=== PATIENT | female | born 2000 | race Two or more races ===

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

== ENCOUNTER → 2021-01-16 | Outpatient (CLI) | payer OTHER ==
[~2021-01-16] MED LIST: D-101000; ERGO500029; MONT10TA10; SERT50TA29; ZOLO50TA
--- NOTE | 2021-01-16 09:58 | REP ---
INDICATION: PAIN COMPARISON: None. TECHNIQUE: Four views right ankle. FINDINGS: There is no evidence of acute fracture, dislocation, or intrinsic bone disease.The ankle mortise is anatomic. IMPRESSION: Negative right ankle series. <Electronically signed by David Mittal > 01/16/21 0960
== END ==
LOC: M WUC 09:27
PROVIDERS: ATTEND Physician Assistant Medical
DX: M25.571 Pain in right ankle and joints of right foot (principal)

== ENCOUNTER → 2021-01-26 | Outpatient (REF) | payer OTHER ==
[~2021-01-26] MED LIST changes: +FLON1SPR NARES; +IBUP-1022 PO; +PROAAER10 INH; +PSEU120T19 PO; +TESS100C PO
== END ==
LOC: M WUC 19:43
PROVIDERS: ATTEND Nurse Practitioner Family
DX: J04.0 Acute laryngitis (principal)

== ENCOUNTER 2021-01-29 18:44 | Emergency (ER) | payer OTHER ==
[~2021-01-29] VITALS: Ht 152.4 cm; Wt 99.7 kg
[2021-01-29 18:44] VITALS: BP 144/80
[~2021-01-29 18:44] MED LIST changes: -FLON1SPR NARES; -IBUP-1022 PO; -PROAAER10 INH; -PSEU120T19 PO; -TESS100C PO
--- OUTSIDE RECORDS SUMMARY | 2021-01-29 18:48 | CCD | Continuity of Care Document ---
Author Author Alicia TOLLIVER LAVATORY ATTENDANT Organization Unknown Address [address] [place] [address] Phone [phone] Care Team Providers Care Abrasive Water Jet Cutter Operator Name Role Phone [facility] AUTM [phone] Problems Active Problems Provider Date Acute asthma ROSETTA Manzano Onset: 07/14/2010 Social History Type Date Description Comments Sex Unknown Tobacco Use Start: Unknown The patient has never vaped Tobacco Use Start: Unknown Patient has never smoked Allergies and adverse reactions Active Allergies Criticality Reaction | Severity Comments Date Peanut-containing Products Unable to assess criticality 08/14/2009 Inactive Allergies NKDA Unable to assess criticality 01/04/2008 Medications Active Medications SIG Qnty Indications Ordering Provide r Date Singulair 10mg Tablets 1 po q d 60tabs Unknown Advair HFA 45-21mcg/Act Aerosol 2 puffs twice a day Unknown Benadryl Allergy Childrens 12.5mg/5ML Liquid as needed Unknown Mucinex Unknown Vicks Dayquil Cold & Flu Unknown Albuterol Fha Unknown Vitamin D Unknown Immunizations Description No Information Available Vital Signs Date Vital Result Comment 01/26/2021 2:53pm BP Systolic 120 mmHg BP Diastolic 81 mmHg Heart Rate 80 /min Respiratory Rate 16 /min O2 % BldC Oximetry 100 % Body Temperature 98.7 F Weight 216.00 lb Height 50 inches 4'2" BMI (Body Mass Index) 60.7 kg/m2 Pain Level 3 05/18/2011 12:05pm BP Systolic 100 mmHg BP Diastolic 60 mmHg Heart Rate 96 /min Respiratory Rate 18 /min O2 % BldC Oximetry 98 % Body Temperature 98.7 F Weight 102.00 lb Height 55 inches 4'7" BMI (Body Mass Index) 23.7 kg/m2 Pain Level 8 Results Test Acquired Date Facility Test Result H/L Range Note Laboratory test finding 01/26/2021 [facility] [address] [place] [address] [phone] Throat Culture FULL REPORT IN L <SEE NOTE> Normal 1 1 FULL REPORT IN LAB NOTES (eC W and Med[facility]). NORMAL DAVINA PRESENT Procedures Date Code Description Status 01/26/2021 [address] Office/Outpatient New Low MDM 30 -44 Minutes Completed Medical Devices Description No Information Available Encounters Type Date Location Provider Dx Diagnosis Office Visit 01/26/2021 11:50a Main Office Carla Tolliver NP J04. 0 Acute laryngitis Z20.828 Contact w and exposure to ot h viral communicable diseases Assessments Date Code Description Provider 01/26/2021 J04.0 Acute laryngitis Carla munguia NP 01/26/2021 Z20.828 Contact with and (root spected) exposure to other viral communicable diseases Carla Tolliver NP Plan of Treatment No Information Available Functional Status Description No Information Available Mental Status Description No Information Available Referrals Description No Information Available
--- OUTSIDE RECORDS SUMMARY | 2021-01-29 18:48 | CCD ---
Author Author [facility] Organization [facility] Address Unknown Phone Unavailable Care Team Providers Care Landscape Foreman Name Role Phone Paula Serrano Unavailable PROBLEMS Type Condition ICD9-CM Code [id number] Code Onset Dates Condition S tatus W/U Status Risk SNOMED Code Notes Problem BMI 37.0-37.9, adult Z68.37 Active confirmed 609529000 Problem Peanut allergy Z91.010 Active confirmed 9193 5009 Problem Non-seasonal allergic rhinitis, unspecified trigger J30.89 Active confirmed 56416848 Problem Anxiety with depression F41.8 Active confirmed 285060425 Problem Pre-diabetes R73.03 Active confirmed 4662478 02 Problem Mixed stress and urge urinary incontinence N39.46 Active confirmed 423367103 Problem Obesity (BMI 30-39.9) E66.9 Active confirmed 539776429 Problem Morbid (severe) obesity due to excess calories E66 .01 Active confirmed 005814357 Problem Mild persistent asthma without complication J45.30 Active confirmed 412276493 Problem Vitamin D deficiency E55.9 Active confirmed 39252926 Problem Mixed hyperlipidemia E78.2 Active confirmed 613868619 Problem BMI 38.0-38.9,adult Z68.38 Active confirmed 661633740 Problem Body mass index (BMI) of 40.1 to 44.9 in adult Z68 .41 Active confirmed 698089777 ALLERGIES Allergen (clinical drug ingredient) Drug/Non Drug Allergy do cumented on EMR Reaction Allergy Type Onset Date Status Peanut allergy Anaphylaxis Non Drug Allergy Act yasmine Mold Hives Non Drug Allergy Active ENCOUNTERS from 2001 to 2020-11-17 Encounter Location Date Provider Diagnosis [address] [phone] [place] [address] Oct, Paula Serrano Non-seasonal allergic rhinit is, unspecified trigger J30.89 IMMUNIZATIONS Vaccine Route Administration Date Status COVID-19 dose #2 given elsewhere Unspecified Unknown Oct 25, 2020 Administered COVID-19 dose #1 given elsewhere Unspecified Unknown Oct 25, 2020 Administered Influenza Pharmacy Given Unknown Mar 23, 2019 Adminis tered Influenza 18 yrs & older [facility] Unknown Mar 28, 2020 Administered SOCIAL HISTORY Tobacco Use: Social History Observation Description Date Details (start date - stop date) Never Smoker Sex Assigned At : Social History Observation Description Sex Assigned At Unknown Education: Question Answer Notes Level 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 No LMP: 04/14/2019 Have you ever had an STD? No Drug and Alcohol Question Answer Notes Total Score: 0 Interpretation: No problems reported Alcohol Screening: Question Answer Notes Did you have a drink containing alcohol in the past year? No Points 0 Interpretation Negative BMI Care Goal Follow-Up Question Answer Notes Above Normal BMI Follow-Up Giving encouragement to exercise Tobacco Use: Question Answer Notes Are you a: never smoker REASON FOR REFERRAL No Information VITAL SIGNS No information MEDICATIONS Medication SIG (Take, Route, Frequency, Duration) Notes Start Da te End Date Status Albuterol Sulfate (2.5 MG/3ML) 0.083% 3 ml as needed Inhalation lauren ry 8 hrs Active Advair HFA 115-21 MCG/ACT 2 puffs Inhalation Twice a day Active Benadryl Allergy 25 mg 1 tablet at bedtime as neede d Orally Once a day as needed with EPI pen Active EpiPen 2-Aayush 0.3 MG/0.3ML as directed Injection Active ProAir HFA 108 (90 Base) mcg/act 2 puffs as needed Inhalation qid prn Active Montelukast Sodium 10 MG 1 tablet Orally Once a day Active Flonase Allergy Relief 50 MCG/ACT 1 spray in each nostril Nasall y Once a day Active Benzamycin 5-3 % 1 application to face Externally Twice a day for 9 0 day(s) Active Drisdol 1.25 MG (12030 UT) 1 capsule Orally once every week with a meal for 90 day(s) Active Vitamin D-3 25 MCG (1000 UT) 1 capsule Orally Once a day 0 5 Mar, 2020 Active Sertraline HCl 25 MG TAKE ONE TABLET BY MOUTH EVERY DAY Oral Active Cetirizine HCl 10 MG 1 tablet Orally Once a day Active PROCEDURES from 2001 to 2020-11-17 Procedure Date Ordered Result Body Site Allergy: Immunotherapy SQ Injection, Multiple 2020-11-17 N/ A RESULTS No Results REASON FOR VISIT allergy shot MEDICAL (GENERAL) HISTORY Type Description Date Medical History asthma Medical History allergic rhinitis Medical History obesity Medical History anxiety/depression Medical History hyperlipidemia Medical History pre-diabetes Medical History vitamin D deficiency Surgical History No Surgical history information Goals Section No Information Health Concerns No Information MEDICAL EQUIPMENT No Information MENTAL STATUS No Information FUNCTIONAL STATUS No Information ASSESSMENTS Encounter Date Diagnosis Assessment Notes Treatment Notes Treatm ent Clinical Notes Oct, Non-seasonal allergic rhinit is, unspecified trigger (ICD-10 - J30.89) PLAN OF TREATMENT Medication Medication Name Sig Start Date Stop Date Drisdol 1.25 MG (78289 UT) 1 capsule Orally once every week with a meal for 90 day(s) Vitamin D-3 25 MCG (1000 UT) 1 capsule Orally Once a day Mar, Next Appt Details Provider Name:Paula Serrano, 2020-12-01 08:0 0:00 AM, [address] [place], [place] [id number], [place], [address], Provider Name:Paulaannie Serrano, 2021-05-09 08:0 0:00 AM, [address] [place], [place] [id number], [place], [address], Insurance Providers Payer Name Payer Address Payer Phone Insured Name Patient Relati onship to Insured Coverage Start Date Coverage End Date AETNA [facility] [address] [facility] [id number] KRISTIE OCONNOR self
--- OUTSIDE RECORDS SUMMARY | 2021-01-29 18:48 | CCD ---
Author Author [facility] Organization [facility] Address Unknown Phone Unavailable Care Team Providers Care State Pilot Name Role Phone Paula Serrano Unavailable PROBLEMS Type Condition ICD9-CM Code FXY00-LF Code Onset Dates Condition S tatus W/U Status Risk SNOMED Code Notes Problem BMI 37.0-37.9, adult Z68.37 Active confirmed 068117747 Problem Peanut allergy Z91.010 Active confirmed 9193 5009 Problem Non-seasonal allergic rhinitis, unspecified trigger J30.89 Active confirmed 24087283 Problem Anxiety with depression F41.8 Active confirmed 133099160 Problem Pre-diabetes R73.03 Active confirmed 0363587 02 Problem Mixed stress and urge urinary incontinence N39.46 Active confirmed 855467600 Problem Obesity (BMI 30-39.9) E66.9 Active confirmed 033175266 Problem Morbid (severe) obesity due to excess calories E66 .01 Active confirmed 451236761 Problem Mild persistent asthma without complication J45.30 Active confirmed 635837783 Problem Vitamin D deficiency E55.9 Active confirmed 70984478 Problem Mixed hyperlipidemia E78.2 Active confirmed 706992383 Problem BMI 38.0-38.9,adult Z68.38 Active confirmed 082279674 Problem Body mass index (BMI) of 40.1 to 44.9 in adult Z68 .41 Active confirmed 583579903 ALLERGIES Allergen (clinical drug ingredient) Drug/Non Drug Allergy do cumented on EMR Reaction Allergy Type Onset Date Status Peanut allergy Anaphylaxis Non Drug Allergy Act yasmine Mold Hives Non Drug Allergy Active ENCOUNTERS from 2001 to 2020-11-08 Encounter Location Date Provider Diagnosis [address] [phone] [place] [address] Oct, Paula Serrano Pre-diabetes R73.03 ; Mixed hyperlipidemia E78.2 ; Vitamin D deficiency E55.9 ; Morbid (severe) obesity due to excess calories E66.01 ; Body mass index (BMI) of 40.1 to 44.9 in adult Z68.41 and Non-seasonal allergic rhinitis, unspecified trigger J30.89 IMMUNIZATIONS Vaccine Route Administration [...] Answer Notes Level of Education: Senior in High [employer] Audit Question Answer Notes Total Score: 0 Interpretation: Alcohol Education Language: Question Answer Notes Languages spoken: Macedonian Quaker: Question Answer Notes Quaker 21 Gnosticist Sexual Hx: Question Answer Notes Had sex [...] REASON FOR REFERRAL No Information VITAL SIGNS Weight 215 lbs Oct, Height 5'0" in Oct, BMI 41.98 kg/m2 Oct, Heart Rate 79 /min Oct, Respiratory Rate 18 /min Oct, Temperature 97.3 degrees Fahrenheit Oct, Oximetry 100 Oct, Blood pressure systolic 112 mm Hg Oct, Blood pressure diastolic 70 mm Hg Oct, MEDICATIONS Medication SIG (Take, Route, Frequency, Duration) [...] 9 0 day(s) Active Drisdol 1.25 MG (94308 UT) 1 capsule Orally once every week with a meal for 90 day(s) Active Vitamin D-3 25 MCG (1000 UT) 1 capsule Orally Once a day 0 5 Mar, 2020 Active Sertraline HCl 25 MG TAKE ONE TABLET BY MOUTH EVERY DAY Oral Active Cetirizine HCl 10 MG 1 tablet Orally Once a day Active PROCEDURES No Information RESULTS No Results REASON FOR VISIT f/up labs - print outside labs done MEDICAL (GENERAL) HISTORY Type Description Date Medical [...] Treatment Notes Treatm ent Clinical Notes Oct, Pre-diabetes (ICD-10 - R73.03) repeat labs in 6 months, diet & exercise reviewed with patient Oct, Mixed hyperlipidemia (ICD-10 - E78.2) low fat diet reviewed - avoid fatty/fried foods. Repeat labs in 6 months Oct, Vitamin D deficiency (ICD-10 - E55.9) decreased from previous - will increase drisdol and re-check with next labs Oct, Morbid (severe) obesity due to excess calories ( ICD-10 - E66.01) Oct, Body mass index (BMI) of 40.1 to 44.9 in adult ( ICD-10 - Z68.41) diet & exercise reviewed with patient Oct, Non-seasonal allergic rhinit is, unspecified trigger (ICD-10 - J30.89) continue allergy shots and f/up per Product Strategy Director PLAN OF TREATMENT Medication Medication Name Sig Start Date Stop Date Drisdol 1.25 MG (91196 UT) 1 capsule Orally once every week with a meal for 90 day(s) Vitamin D-3 25 MCG (1000 UT) 1 capsule Orally Once a day Mar, Treatment Notes Assessment Notes Clinical Notes Pre-diabetes repeat labs in 6 months, diet & exercise reviewed with patient Mixed hyperlipidemia low fat diet reviewed - avoi d fatty/fried foods. Repeat labs in 6 months Vitamin D deficiency decreased from previous - wi ll increase drisdol and re- check with next labs Body mass index (BMI) of 40.1 to 44.9 in adult diet & exercise reviewed with patient Non-seasonal allergic rhinitis, unspecified trigger co ntinue allergy shots and f/up per Product Strategy Director Future Test Test Name Order Date Comprehensive Metabolic Profile (CMP) 20210424 MICROALBUMIN RANDOM [id number] HEMOGLOBIN A1c 20210424 LIPID PANEL (CARDIAC RISK) 20210424 VITAMIN D 25-HYDROXY 20210424 Next Appt Details 6 Months w/ me and [place] for allergy shots Reason: Provider Name:Paula Serrano, 2020-11-17 11:0 0:00 AM, [address] [place] [address] , [place], [address], Provider Name:Paula Serrano, 2021-05-09 08:0 0:00 AM, [address] [place] [address] , [place], [address], Insurance Providers Payer Name Payer Address Payer Phone Insured Name Patient Relati onship to Insured Coverage Start Date Coverage End Date AETNA [facility] [place] [address] [facility] [id number] KRISTIE OCONNOR self
--- OUTSIDE RECORDS SUMMARY | 2021-01-29 18:48 | CCD ---
Author Author [facility] Organization [facility] Address Unknown Phone Unavailable Care Team Providers Care Openstack Developer Name Role Phone Paula Serrano Unavailable PROBLEMS Type Condition ICD9-CM Code [id number] Code Onset Dates Condition S tatus W/U Status Risk SNOMED Code Notes Problem BMI 37.0-37.9, adult Z68.37 Active confirmed 108824962 Problem Peanut allergy Z91.010 Active confirmed 9193 5009 Problem Non-seasonal allergic rhinitis, unspecified trigger J30.89 Active confirmed 79937367 Problem Anxiety with depression F41.8 Active confirmed 964416974 Problem Pre-diabetes R73.03 Active confirmed 4373500 02 Problem Mixed stress and urge urinary incontinence N39.46 Active confirmed 368410920 Problem Obesity (BMI 30-39.9) E66.9 Active confirmed 673781902 Problem Morbid (severe) obesity due to excess calories E66 .01 Active confirmed 956031919 Problem Mild persistent asthma without complication J45.30 Active confirmed 237024252 Problem Vitamin D deficiency E55.9 Active confirmed 56390909 Problem Mixed hyperlipidemia E78.2 Active confirmed 063495830 Problem BMI 38.0-38.9,adult Z68.38 Active confirmed 017363946 Problem Body mass index (BMI) of 40.1 to 44.9 in adult Z68 .41 Active confirmed 203568264 ALLERGIES Allergen (clinical drug ingredient) Drug/Non Drug Allergy do cumented on EMR Reaction Allergy Type Onset Date Status Mold Hives Drug Allergy Active arachis oil Peanut-containing Drug Products Anaphylaxis Drug Allergy Active ENCOUNTERS from 2001 to 2021-01-09 Encounter Location Date Provider Diagnosis [address] [phone] [place] [address] 18 Dec, 2020 Paula Serrano IMMUNIZATIONS Vaccine Route Administration Date Status COVID-19 [...] Notes Level of Education: Senior in High [employer] Audit Question Answer Notes Total Score: 0 Interpretation: Alcohol Education Language: Question Answer Notes Languages spoken: French Taoism: Question Answer Notes Taoism 21 Uatsdin Sexual Hx: Question Answer Notes Had sex [...] 9 0 day(s) Active Drisdol 1.25 MG (85925 UT) 1 capsule Orally once every week [...] Information RESULTS No Results REASON FOR VISIT IT record? MEDICAL (GENERAL) HISTORY Type Description Date Medical History asthma Medical History allergic rhinitis Medical History obesity Medical History anxiety/depression Medical History hyperlipidemia Medical History pre-diabetes Medical History vitamin D deficiency Surgical History No Surgical history information Goals Section No Information Health Concerns No Information MEDICAL EQUIPMENT No Information MENTAL STATUS No Information FUNCTIONAL STATUS No Information ASSESSMENTS No Information PLAN OF TREATMENT Medication Medication Name Sig Start Date Stop Date Drisdol 1.25 MG (16897 UT) 1 capsule Orally once every week with a meal for 90 day(s) Vitamin D-3 25 MCG (1000 UT) 1 capsule Orally Once a day Mar, Next Appt Details Provider Name:Paula Serrano, 2021-01-12 02:0 0:00 PM, [address] [place] [address] , [place], [address], Provider Name:Vanessa Killian, 09:00:00 AM, [address] [place] [address] , [place], [address], Insurance Providers Payer Name Payer Address Payer Phone Insured Name Patient Relati onship to Insured Coverage Start Date Coverage End Date AETNA [facility] [address] [facility] [id number] KRISTIE OCONNOR self
--- OUTSIDE RECORDS SUMMARY | 2021-01-29 18:48 | CCD ---
Author Author [facility] Organization [facility] Address Unknown Phone Unavailable Care Team Providers Care Manager Operational Name Role Phone Paula Serrano Unavailable PROBLEMS Type Condition ICD9-CM Code [id number] Code Onset Dates Condition S tatus W/U Status Risk SNOMED Code Notes Problem BMI 37.0-37.9, adult Z68.37 Active confirmed 511844540 Problem Peanut allergy Z91.010 Active confirmed 9193 5009 Problem Non-seasonal allergic rhinitis, unspecified trigger J30.89 Active confirmed 79406886 Problem Anxiety with depression F41.8 Active confirmed 597302765 Problem Pre-diabetes R73.03 Active confirmed 0619313 02 Problem Mixed stress and urge urinary incontinence N39.46 Active confirmed 665720254 Problem Obesity (BMI 30-39.9) E66.9 Active confirmed 383643193 Problem Morbid (severe) obesity due to excess calories E66 .01 Active confirmed 331108727 Problem Mild persistent asthma without complication J45.30 Active confirmed 877635474 Problem Vitamin D deficiency E55.9 Active confirmed 42954495 Problem Mixed hyperlipidemia E78.2 Active confirmed 227193091 Problem BMI 38.0-38.9,adult Z68.38 Active confirmed 749502911 Problem Body mass index (BMI) of 40.1 to 44.9 in adult Z68 .41 Active confirmed 034665471 ALLERGIES Allergen (clinical drug ingredient) Drug/Non Drug Allergy do cumented on EMR Reaction Allergy Type Onset Date Status Peanut allergy Anaphylaxis Non Drug Allergy Act yasmine Mold Hives Non Drug Allergy Active ENCOUNTERS from 2001 to 2020-11-03 Encounter Location Date Provider Diagnosis [address] [phone] [place] [address] 13 Oct, 2020 Paula Serrano Non-seasonal allergic rhinit is, unspecified [...] Answer Notes Level of Education: Senior in [employer] Audit Question Answer Notes Total Score: 0 Interpretation: Alcohol Education Language: Question Answer Notes Languages spoken: Romansh Anglican: Question Answer Notes Anglican 21 Mandaeism Sexual Hx: Question Answer Notes Had sex [...] 9 0 day(s) Active Drisdol 1.25 MG (91056 UT) 1 capsule Orally once every week with a meal for 90 day(s) Active Vitamin D-3 25 MCG (1000 UT) 1 capsule Orally Once a day 0 5 Mar, 2020 Active Sertraline HCl 25 MG TAKE ONE TABLET BY MOUTH EVERY DAY Oral Active Cetirizine HCl 10 MG 1 tablet Orally Once a day Active PROCEDURES from 2001 to 2020-11-03 Procedure Date Ordered Result Body Site Allergy: Immunotherapy SQ Injection, Multiple 2020-11-03 N/ A RESULTS No Results REASON FOR [...] Start Date Stop Date Drisdol 1.25 MG (45922 UT) 1 capsule Orally once every week with a meal for 90 day(s) Vitamin D-3 25 MCG (1000 UT) 1 capsule Orally Once a day Mar, Next Appt Details Provider Name:Paula Serrano, 2020-11-17 11:0 0:00 AM, [address] [place], [place] [id number], [place], [address], Provider Name:Paulaannie Serrano, 2021-05-09 08:0 0:00 AM, [address] [place], [place] [id number], [place], [address], Insurance Providers Payer Name Payer Address Payer Phone Insured Name Patient Relati onship to Insured Coverage Start Date Coverage End Date AETNA [facility] [address] [facility] [id number] KRISTIE OCONNOR self
--- OUTSIDE RECORDS SUMMARY | 2021-01-29 18:48 | CCD ---
Author Author [facility] Organization [facility] Address Unknown Phone Unavailable Care Team Providers Care Ditch Worker Name Role Phone Paula Serrano Unavailable PROBLEMS Type Condition ICD9-CM Code [id number] Code Onset Dates Condition S tatus W/U Status Risk SNOMED Code Notes Problem BMI 37.0-37.9, adult Z68.37 Active confirmed 141995337 Problem Peanut allergy Z91.010 Active confirmed 9193 5009 Problem Non-seasonal allergic rhinitis, unspecified trigger J30.89 Active confirmed 72120754 Problem Anxiety with depression F41.8 Active confirmed 410504776 Problem Pre-diabetes R73.03 Active confirmed 2281887 02 Problem Mixed stress and urge urinary incontinence N39.46 Active confirmed 507877607 Problem Obesity (BMI 30-39.9) E66.9 Active confirmed 152050461 Problem Morbid (severe) obesity due to excess calories E66 .01 Active confirmed 045095879 Problem Mild persistent asthma without complication J45.30 Active confirmed 144279519 Problem Vitamin D deficiency E55.9 Active confirmed 67861214 Problem Mixed hyperlipidemia E78.2 Active confirmed 143108117 Problem BMI 38.0-38.9,adult Z68.38 Active confirmed 952587463 Problem Body mass index (BMI) of 40.1 to 44.9 in adult Z68 .41 Active confirmed 462510177 ALLERGIES Allergen (clinical drug ingredient) Drug/Non Drug Allergy do cumented on EMR Reaction Allergy Type Onset Date Status Peanut allergy Anaphylaxis Non Drug Allergy Act yasmine Mold Hives Non Drug Allergy Active ENCOUNTERS from 2001 to 2020-12-29 Encounter Location Date Provider Diagnosis [id number] [place] [address] 08 Dec, 2020 Paula Serrano Non-seasonal allergic rhinit is, [...] Answer Notes Level of Education: Senior in [employer] Audit Question Answer Notes Total Score: 0 Interpretation: Alcohol Education Language: Question Answer Notes Languages spoken: Albanian Denominational: Question Answer Notes Denominational 21 Sikh Sexual Hx: Question Answer Notes Had sex [...] 9 0 day(s) Active Drisdol 1.25 MG (17431 UT) 1 capsule Orally once every week with a meal for 90 day(s) Active Vitamin D-3 25 MCG (1000 UT) 1 capsule Orally Once a day 0 5 Mar, 2020 Active Sertraline HCl 25 MG TAKE ONE TABLET BY MOUTH EVERY DAY Oral Active Cetirizine HCl 10 MG 1 tablet Orally Once a day Active PROCEDURES from 2001 to 2020-12-29 Procedure Date Ordered Result Body Site Allergy: Immunotherapy SQ Injection, Multiple 2020-12-29 N/ A RESULTS No Results REASON FOR VISIT ALLERGY SHOT MEDICAL (GENERAL) HISTORY Type Description Date Medical [...] Notes Treatment Notes Treatm ent Clinical Notes Dec, Non-seasonal allergic rhinit is, unspecified trigger (ICD-10 - J30.89) PLAN OF TREATMENT Medication Medication Name Sig Start Date Stop Date Drisdol 1.25 MG (27979 UT) 1 capsule Orally once every week with a meal for 90 day(s) Vitamin D-3 25 MCG (1000 UT) 1 capsule Orally Once a day Mar, Next Appt Details Provider Name:Paula Serrano, 2021-01-12 02:0 0:00 PM, [address] [place], [place] [id number], [place], [address], Provider Name:Vanessa Killian, 09:00:00 AM, [address] [place], [place] [id number], [place], [address], Insurance Providers Payer Name Payer Address Payer Phone Insured Name Patient Relati onship to Insured Coverage Start Date Coverage End Date [facility] [address] [facility] [id number] KRISTIE OCONNOR self
--- OUTSIDE RECORDS SUMMARY | 2021-01-29 18:48 | CCD ---
Author Author [facility] Organization [facility] Address Unknown Phone Unavailable Care Team Providers Care National Park Tour Guide Name Role Phone Paula Serrano Unavailable PROBLEMS Type Condition ICD9-CM Code [id number] Code Onset Dates Condition S tatus W/U Status Risk SNOMED Code Notes Problem BMI 37.0-37.9, adult Z68.37 Active confirmed 871600986 Problem Peanut allergy Z91.010 Active confirmed 9193 5009 Problem Non-seasonal allergic rhinitis, unspecified trigger J30.89 Active confirmed 84586115 Problem Anxiety with depression F41.8 Active confirmed 795542729 Problem Pre-diabetes R73.03 Active confirmed 3765096 02 Problem Mixed stress and urge urinary incontinence N39.46 Active confirmed 324595198 Problem Obesity (BMI 30-39.9) E66.9 Active confirmed 103281650 Problem Morbid (severe) obesity due to excess calories E66 .01 Active confirmed 551279532 Problem Mild persistent asthma without complication J45.30 Active confirmed 417805901 Problem Vitamin D deficiency E55.9 Active confirmed 11823988 Problem Mixed hyperlipidemia E78.2 Active confirmed 022116935 Problem BMI 38.0-38.9,adult Z68.38 Active confirmed 634895591 Problem Body mass index (BMI) of 40.1 to 44.9 in adult Z68 .41 Active confirmed 309613079 ALLERGIES Allergen (clinical drug ingredient) Drug/Non Drug Allergy do cumented on EMR Reaction Allergy Type Onset Date Status Peanut allergy Anaphylaxis Non Drug Allergy Act yasmine Mold Hives Non Drug Allergy Active ENCOUNTERS from 2001 to 2020-12-01 Encounter Location Date Provider Diagnosis [address] [phone] [place] [address] 10 Nov, 2020 Paula Serrano Non-seasonal allergic rhinit is, [...] Answer Notes Level of Education: Senior in [employer] Audit Question Answer Notes Total Score: 0 Interpretation: Alcohol Education Language: Question Answer Notes Languages spoken: Faroese Hoahaoism: Question Answer Notes Hoahaoism 21 Worship Sexual Hx: Question Answer Notes Had sex [...] 9 0 day(s) Active Drisdol 1.25 MG (42862 UT) 1 capsule Orally once every week with a meal for 90 day(s) Active Vitamin D-3 25 MCG (1000 UT) 1 capsule Orally Once a day 0 5 Mar, 2020 Active Sertraline HCl 25 MG TAKE ONE TABLET BY MOUTH EVERY DAY Oral Active Cetirizine HCl 10 MG 1 tablet Orally Once a day Active PROCEDURES from 2001 to 2020-12-01 Procedure Date Ordered Result Body Site Allergy: Immunotherapy SQ Injection, Multiple 2020-12-01 N/ A RESULTS No Results REASON FOR [...] Notes Treatment Notes Treatm ent Clinical Notes Nov, Non-seasonal allergic rhinit is, unspecified trigger (ICD-10 - J30.89) PLAN OF TREATMENT Medication Medication Name Sig Start Date Stop Date Drisdol 1.25 MG (25911 UT) 1 capsule Orally once every week with a meal for 90 day(s) Vitamin D-3 25 MCG (1000 UT) 1 capsule Orally Once a day Mar, Next Appt Details Provider Name:Paula Zach, 2020-12-15 02:0 0:00 PM, [address] [place], [place] [id number], [place], [address], Provider Name:Paula Serrano, 2021-05-09 08:0 0:00 AM, [address] [place], [place] [id number], [place], [address], Insurance Providers Payer Name Payer Address Payer Phone Insured Name Patient Relati onship to Insured Coverage Start Date Coverage End Date AETNA [facility] [address] [facility] [id number] KRISTIE OCONNOR self
--- OUTSIDE RECORDS SUMMARY | 2021-01-29 18:48 | CCD ---
Author Author [facility] Organization [facility] Address Unknown Phone Unavailable Care Team Providers Care Shipboard Intelligence Analyst Name Role Phone Paula Serrano Unavailable PROBLEMS Type Condition ICD9-CM Code ZGV16-QT Code Onset Dates Condition S tatus W/U Status Risk SNOMED Code Notes Problem Peanut allergy Z91.010 Active confirmed 9193 5009 Problem Mild persistent asthma without complication J45.30 Active confirmed 712386922 Problem BMI 37.0-37.9, adult Z68.37 Active confirmed 598616517 Problem Anxiety with depression F41.8 Active confirmed 299396157 Problem Pre-diabetes R73.03 Active confirmed 9878902 02 Problem Vitamin D deficiency E55.9 Active confirmed 77274019 Problem Morbid (severe) obesity due to excess calories E66 .01 Active confirmed 406361436 Problem Non-seasonal allergic rhinitis, unspecified trigger J30.89 Active confirmed 20319212 Problem Encounter for immunization Z23 Active confirmed 981562486 Problem Obesity (BMI 30-39.9) E66.9 Active confirmed 261118003 Problem Mixed hyperlipidemia E78.2 Active confirmed 752774959 Problem BMI 38.0-38.9,adult Z68.38 Active confirmed 951040261 Problem Body mass index (BMI) of 40.1 to 44.9 in adult Z68 .41 Active confirmed 793766016 Problem Mixed stress and urge urinary incontinence N39.46 Active confirmed 167033805 ALLERGIES Allergen (clinical drug ingredient) Drug/Non Drug Allergy do cumented on EMR Reaction Allergy Type Onset Date Status Mold Hives Drug Allergy Active arachis oil Peanut-containing Drug Products Anaphylaxis Drug Allergy Active ENCOUNTERS from 2001 to 2021-01-16 Encounter Location Date Provider Diagnosis [facility] [address] [facility] [phone] [place] [address] Dec, Paula Serrano Encounter for immunization Z 23 and Non-seasonal allergic rhinitis, unspecified trigger J30.89 IMMUNIZATIONS Vaccine Route Administration Date Status COVID-19 dose #2 given elsewhere Unspecified Unknown Oct 25, 2020 Administered COVID-19 dose #1 given elsewhere Unspecified Unknown Oct 25, 2020 Administered Influenza Pharmacy Given Unknown Mar 23, 2019 Adminis tered Influenza 18 yrs & older Flublok IM Intramuscular Jan 12, 2021 Administered Influenza 18 yrs & older Flublok Unknown Mar 28, 2020 Administered SOCIAL HISTORY Tobacco Use: Social History Observation Description Date Details (start date - stop date) Never Smoker Sex Assigned At : Social History Observation Description Sex Assigned At Unknown Education: Question Answer Notes Level of Education: Senior in [employer] Audit Question Answer Notes Total Score: 0 Interpretation: Alcohol Education Language: Question Answer Notes Languages spoken: Belgian Tenriism: Question Answer Notes Tenriism 21 Latter Day Sexual Hx: Question Answer Notes Had sex [...] 9 0 day(s) Active Drisdol 1.25 MG (47626 UT) 1 capsule Orally once every week with a meal for 90 day(s) Active Vitamin D-3 25 MCG (1000 UT) 1 capsule Orally Once a day 0 5 Mar, 2020 Active Sertraline HCl 25 MG TAKE ONE TABLET BY MOUTH EVERY DAY Oral Active Cetirizine HCl 10 MG 1 tablet Orally Once a day Active PROCEDURES from 2001 to 2021-01-16 Procedure Date Ordered Result Body Site Allergy: Immunotherapy SQ Injection, Multiple 2021-01-12 N/ A Imm: Flublok Quadrivalent 18 years & older 0.5mL IM Influenza 11-01-22 N/A RESULTS No Results REASON FOR VISIT Allergy shot and flu MEDICAL (GENERAL) HISTORY Type Description Date Medical [...] Treatment Notes Treatm ent Clinical Notes Dec, Encounter for immunization (ICD-10 - Z23) Dec, Non-seasonal allergic rhinit is, unspecified trigger (ICD-10 - J30.89) PLAN OF TREATMENT Medication Medication Name Sig Start Date Stop Date Drisdol 1.25 MG (95634 UT) 1 capsule Orally once every week with a meal for 90 day(s) Vitamin D-3 25 MCG (1000 UT) 1 capsule Orally Once a day Mar, Next Appt Details Provider Name:Paula Serrano, 2021-01-26 09:0 0:00 AM, [address] [place] [address] , [place], [address], Provider Name:Vanessa Killian, 09:00:00 AM, [address] [place] [address] , [place], [address], Insurance Providers Payer Name Payer Address Payer Phone Insured Name Patient Relati onship to Insured Coverage Start Date Coverage End Date AETNA [facility] [address] [place] [id number] KRISTIE THOMAS self
--- OUTSIDE RECORDS SUMMARY | 2021-01-29 18:48 | CCD | Continuity of Care Document ---
Author Author Alicia TOLL[facility] ENER[facility] ADMINISTRATOR Organization Unknown Address [address] [place] [address] Phone [phone] Care Team Providers Care Manager Council Name Role Phone [facility] Problems Active Problems Provider Date Acute asthma [...] H/L Range Note Laboratory test finding 01/26/2021 [facility] [address] [place] [address] [phone] Throat Culture <pending> Procedures Description No Information Available Medical Devices Description No Information Available Encounters Description No Information Available Assessments Date Code Description Provider 01/26/2021 J04.0 Acute laryngitis Carla munguia NP 01/26/2021 Z20.828 Contact with and (root spected) exposure to other viral communicable diseases Carla Tolliver NP Plan of Treatment 01/26/2021 - Carla Tolliver NP* J04.0 Acute laryngitis* Comments:* supportive carewarm fluidsf/u PRN or with PCPpatient v/u & agrees to plan * Z20.828 Contact with and (suspected) exposure to other viral communicable diseases Functional Status Description No Information Available Mental Status Description No Information Available Referrals Description No Information Available
--- OUTSIDE RECORDS SUMMARY | 2021-01-29 18:48 | CCD | Continuity of Care Document ---
Author Author Alicia TOLLIVER LAMINATION MACHINE OPERATOR Organization Unknown Address [address] [place] [address] Phone [phone] Care Team Providers Care Surface Hydrologist Name Role Phone [facility] Problems [...] H/L Range Note Laboratory test finding 01/26/2021 [facility] [address] [place] [address] [phone] Throat Culture <pending> Procedures Date Code Description Status 01/26/2021 [address] Office/Outpatient [facility] 30 -44 Minutes Completed Medical Devices Description [...]
--- OUTSIDE RECORDS SUMMARY | 2021-01-29 18:49 | CCD ---
Author Author [facility] Organization [facility] Address Unknown Phone Unavailable Care Team Providers Care Business Job Titles Name Role Phone Alvarado, Carla SPECIAL FORCES SPECIALIST Unavailable Unavailable Alvarado, Carla SPECIAL FORCES SPECIALIST Unavailable Unavailable Alvarado, Carla SPECIAL FORCES SPECIALIST Unavailable Unavailable Alvarado, Carla SPECIAL FORCES SPECIALIST Unavailable Unavailable Alvarado, Carla SPECIAL FORCES SPECIALIST Unavailable Unavailable Alvarado, Carla SPECIAL FORCES SPECIALIST Unavailable Unavailable Alvarado, Carla SPECIAL FORCES SPECIALIST Unavailable Unavailable Alvarado, Carla SPECIAL FORCES SPECIALIST Unavailable Unavailable Alvarado, Carla SPECIAL FORCES SPECIALIST Unavailable Unavailable Alvarado, Carla SPECIAL FORCES SPECIALIST Unavailable Unavailable Alvarado, Carla SPECIAL FORCES SPECIALIST Unavailable Unavailable Alvarado, Carla SPECIAL FORCES SPECIALIST Unavailable Unavailable Alvarado, Carla SPECIAL FORCES SPECIALIST Unavailable Unavailable Cristofer Jaime MD Unavailable Unavailable Cristofer Jaime MD Unavailable Unavailable Cristofer Jaime MD Unavailable Unavailable Cristofer Jaime MD Unavailable Unavailable Cristofer Jaime MD Unavailable Unavailable Cristofer Jaime MD Unavailable Unavailable Cristofer Jaime MD Unavailable Unavailable Cristofer Jaime MD Unavailable Unavailable Cristofer Jaime MD Unavailable Unavailable Cristofer Jaime MD Unavailable Unavailable Cristofer Jaime MD Unavailable Unavailable Cristofer Jaime MD Unavailable Unavailable Cristofer Jaime MD Unavailable Unavailable Cristofer Jaime MD Unavailable Unavailable Cristofer Jaime MD Unavailable Unavailable Cristofer Jaime MD Unavailable Unavailable Cristofer Jaime MD Unavailable Unavailable Cristofer Jaime MD Unavailable Unavailable Cristofer Jaime MD Unavailable Unavailable Cristofer Jaime MD Unavailable Unavailable Cristofer Jaime MD Unavailable Unavailable Cristofer Jaime MD Unavailable Unavailable Cristofer Jaime MD Unavailable Unavailable Cristofer Jaime MD Unavailable Unavailable Cristofer Jaime MD Unavailable Unavailable Cristofer Jaime MD Unavailable Unavailable Cristofer Jaime MD Unavailable Unavailable Cristofer Jaime MD Unavailable Unavailable Cristofer Jaime MD Unavailable Unavailable Cristofer Jaime MD Unavailable Unavailable Cristofer Jaime MD Unavailable Unavailable Cristofer Jaime MD Unavailable Unavailable Cristofer Jaime MD Unavailable Unavailable Cristofer Jaime MD Unavailable Unavailable Cristofer Jaime MD Unavailable Unavailable Cristofer Jaime MD Unavailable Unavailable Cristofer Jaime MD Unavailable Unavailable Cristofer Jaime MD Unavailable Unavailable Cristofer Jaime MD Unavailable Unavailable Cristofer Jaime MD Unavailable Unavailable Cristofer Jaime MD Unavailable Unavailable Cristofer Jaime MD Unavailable Unavailable Cristofer Jaime MD Unavailable Unavailable Cristofer Jaime MD Unavailable Unavailable Cristofer Jaime MD Unavailable Unavailable Cristofer Jaime MD Unavailable Unavailable Cristofer Jaime MD Unavailable Unavailable Cristofer Jaime MD Unavailable Unavailable Cristofer Jaime MD Unavailable Unavailable Cristofer Jaime MD Unavailable Unavailable Cristofer Jaime MD Unavailable Unavailable Cristofer Jaime MD Unavailable Unavailable Cristofer Jaime MD Unavailable Unavailable Cristofer Jaime MD Unavailable Unavailable Cristofer Jaime MD Unavailable Unavailable Cristofer Jaime MD Unavailable Unavailable Cristofer Jaime MD Unavailable Unavailable Cristofer Jaime MD Unavailable Unavailable Cristofer Jaime MD Unavailable Unavailable Cristofer Jaime MD Unavailable Unavailable Cristofer Jaime MD Unavailable Unavailable Cristofer Jaime MD Unavailable Unavailable Cristofer Jaime MD Unavailable Unavailable Cristofer Jaime MD Unavailable Unavailable Cristofer Jaime MD Unavailable Unavailable Cristofer Jaime MD Unavailable Unavailable Cristofer Jaime MD Unavailable Unavailable Cristofer Jaime MD Unavailable Unavailable Cristofer Jaime MD Unavailable Unavailable Cristofer Jaime MD Unavailable Unavailable Cristofer Jaime MD Unavailable Unavailable Cristofer Jaime MD Unavailable Unavailable Cristofer Jaime MD Unavailable Unavailable Cristofer Jaime MD Unavailable Unavailable Cristofer Jaime MD Unavailable Unavailable Cristofer Jaime MD Unavailable Unavailable Cristofer Jaime MD Unavailable Unavailable Cristofer Jaime MD Unavailable Unavailable Cristofer Jaime MD Unavailable Unavailable Cristofer Jaime MD Unavailable Unavailable Cirstofer Jaime MD Unavailable Unavailable Cristofer Jaime MD Unavailable Unavailable Cristofer Jaime MD Unavailable Unavailable Jaime, Cristofer Aleman MD Unavailable Unavailable Jaime, Cristofer Aleman MD Unavailable Unavailable Jaime, Cristofer Aleman MD Unavailable Unavailable Jaime, Cristofer Aleman MD Unavailable Unavailable Jaime, Cristofer Aleman MD Unavailable Unavailable Jaime, Cristofer Aleman MD Unavailable Unavailable Jaime, Cristofer Aleman MD Unavailable Unavailable Jaime, Cristofer Aleman MD Unavailable Unavailable Jaime, Cristofer Aleman MD Unavailable Unavailable Jaime, Cristofer Aleman MD Unavailable Unavailable CAMARA, LORI RAJI RPA-C Unavailable Unavailable CAMARA, LORI RAJI RPA-C Unavailable Unavailable CAMARA, LORI RAJI RPA-C Unavailable Unavailable CAMARA, LORI RAJI RPA-C Unavailable Unavailable CAMARA, LORI RAJI RPA-C Unavailable Unavailable CAMARA, LORI RAJI RPA-C Unavailable Unavailable CAMARA, LORI RAJI RPA-C Unavailable Unavailable CAMARA, LORI RAJI RPA-C Unavailable Unavailable CAMARA, LORI RAJI RPA-C Unavailable Unavailable CAMARA, LORI RAJI RPA-C Unavailable Unavailable CAMARA, LORI RAJI RPA-C Unavailable Unavailable CAMARA, LORI RAJI RPA-C Unavailable Unavailable CAMARA, LORI RAJI RPA-C Unavailable Unavailable CAMARA, LORI RAJI RPA-C Unavailable Unavailable CAMARA, LORI RAJI RPA-C Unavailable Unavailable CAMARA, LORI RAJI RPA-C Unavailable Unavailable CAMARA, LORI RAJI RPA-C Unavailable Unavailable CAMARA, LORI RAJI RPA-C Unavailable Unavailable CAMARA, LORI RAJI RPA-C Unavailable Unavailable CAMARA, LORI RAJI RPA-C Unavailable Unavailable CAMARA, LORI RAJI RPA-C Unavailable Unavailable CAMARA, LORI RAJI RPA-C Unavailable Unavailable CAMARA, LORI RAJI RPA-C Unavailable Unavailable CAMARA, LORI RAJI RPA-C Unavailable Unavailable CAMARA, LORI RAJI RPA-C Unavailable Unavailable CAMARA, LORI RAJI RPA-C Unavailable Unavailable CAMARA, LORI RAJI RPA-C Unavailable Unavailable CAMARA, LORI RAJI RPA-C Unavailable Unavailable CAMARA, LORI RAJI RPA-C Unavailable Unavailable CAMARA, LORI RAJI RPA-C Unavailable Unavailable CAMARA, LORI RAJI RPA-C Unavailable Unavailable CAMARA, LORI RAJI RPA-C Unavailable Unavailable CAMARA, LORI RAJI RPA-C Unavailable Unavailable CAMARA, LORI RAJI RPA-C Unavailable Unavailable CAMARA, LORI RAJI RPA-C Unavailable Unavailable CAMARA, LORI RAJI RPA-C Unavailable Unavailable CAMARA, LORI RAJI RPA-C Unavailable Unavailable CAMARA, LORI RAJI RPA-C Unavailable Unavailable CAMARA, LORI RAJI RPA-C Unavailable Unavailable CAMARA, LORI RAJI RPA-C Unavailable Unavailable CAMARA, LORI RAJI RPA-C Unavailable Unavailable CAMARA, LORI RAJI RPA-C Unavailable Unavailable CAMARA, LORI RAJI RPA-C Unavailable Unavailable Cristofer Jaime MD Unavailable Unavailable Cristofer Jaime MD Unavailable Unavailable Cristofer Jaime MD Unavailable Unavailable Cristofer Jaime MD Unavailable Unavailable Cristofer Jaime MD Unavailable Unavailable Cristofer Jaime MD Unavailable Unavailable Cristofer Jaime MD Unavailable Unavailable Cristofer Jaime MD Unavailable Unavailable Cristofer Jaime MD Unavailable Unavailable Cristofer Jaime MD Unavailable Unavailable Cristofer Jaime MD Unavailable Unavailable Cristofer Jaime MD Unavailable Unavailable Cristofer Jaime MD Unavailable Unavailable Cristofer Jaime MD Unavailable Unavailable Cristofer Jaime MD Unavailable Unavailable Cristofer Jaime MD Unavailable Unavailable Cristofer Jaime MD Unavailable Unavailable Cristofer Jaime MD Unavailable Unavailable Cristofer Jaime MD Unavailable Unavailable Cristofer Jaime MD Unavailable Unavailable Cristofer Jaime MD Unavailable Unavailable Cristofer Jaime MD Unavailable Unavailable Cristofer Jaime MD Unavailable Unavailable Cristofer Jaime MD Unavailable Unavailable Cristofer Jaime MD Unavailable Unavailable Cristofer Jaime MD Unavailable Unavailable Cristofer Jaime MD Unavailable Unavailable Cristofer Jaime MD Unavailable Unavailable Cristofer Jaime MD Unavailable Unavailable Cristofer Jaime MD Unavailable Unavailable Cristofer Jaime MD Unavailable Unavailable Cristofer Jaime MD Unavailable Unavailable Cristofer Jaime MD Unavailable Unavailable Cristofer Jaime MD Unavailable Unavailable Cristofer Jaime MD Unavailable Unavailable Cristofer Jaime MD Unavailable Unavailable Cristofer Jaime MD Unavailable Unavailable Cristofer Jaime MD Unavailable Unavailable Cristofer Jaime MD Unavailable Unavailable Cristofer Jaime MD Unavailable Unavailable Cristofer Jaime MD Unavailable Unavailable Cristofer Jaime MD Unavailable Unavailable Cristofer Jaime MD Unavailable Unavailable Cristofer Jaime MD Unavailable Unavailable Cristofer Jaime MD Unavailable Unavailable Cristofer Jaime MD Unavailable Unavailable Cristofer Jaime MD Unavailable Unavailable Cristofer Jaime MD Unavailable Unavailable Cristofer Jaime MD Unavailable Unavailable Cristofer Jaime MD Unavailable Unavailable Cristofer Jaime MD Unavailable Unavailable Cristofer Jaime MD Unavailable Unavailable Cristofer Jaime MD Unavailable Unavailable Cristofer Jaime MD Unavailable Unavailable Cristofer Jaime MD Unavailable Unavailable Cristofer Jaime MD Unavailable Unavailable Cristofer Jaime MD Unavailable Unavailable Cristofer Jaime MD Unavailable Unavailable Cristofer Jaime MD Unavailable Unavailable JaimeCristofer MD Unavailable Unavailable Jaime, D Ash MD Unavailable Unavailable Jaime, D Ash MD Unavailable Unavailable Jaime, D Ash MD Unavailable Unavailable Jaime, D Ash MD Unavailable Unavailable Jaime, D Ash MD Unavailable Unavailable Jaime, D Ash MD Unavailable Unavailable Jaime, D Ash MD Unavailable Unavailable Jaime, D Ash MD Unavailable Unavailable Jaime, D Ash MD Unavailable Unavailable Jaime, D Ash MD Unavailable Unavailable Jaime, D Ash MD Unavailable Unavailable Jaime, D Ash MD Unavailable Unavailable Jaime, D Ash MD Unavailable Unavailable Jaime, D Ash MD Unavailable Unavailable Jaime, D Ash MD Unavailable Unavailable Jaime, D Ash MD Unavailable Unavailable Jaime, D Ash MD Unavailable Unavailable Jaime, D Ash MD Unavailable Unavailable Jaime, D Ash MD Unavailable Unavailable Jaime, D Ash MD Unavailable Unavailable Jaime, D Ash MD Unavailable Unavailable Jaime, D Ash MD Unavailable Unavailable Jaime, D Ash MD Unavailable Unavailable Jaime, D Ash MD Unavailable Unavailable Jaime, D Ash MD Unavailable Unavailable Jaime, D Ash MD Unavailable Unavailable Jaime, D Ash MD Unavailable Unavailable Jaime, D Ash MD Unavailable Unavailable Jaime, D Ash MD Unavailable Unavailable Jaime, D Ash MD Unavailable Unavailable Jaime, D Ash MD Unavailable Unavailable Jaime, D Ash MD Unavailable Unavailable Jaime, D Ash MD Unavailable Unavailable Re-disclosure Warning The records that you are about to access may contain information from federally-assisted alcohol or drug abuse programs. If such information is present, then the following federally mandated warning applies: This information has been disclosed to you from records protected by federal confidentiality rules (42 CFR part 2). The federal rules prohibit you from making any further disclosure of this information unless further disclosure is expressly permitted by the written consent of the person to whom it pertains or as otherwise permitted by 42 CFR part 2. A general authorization for the release of medical or other information is NOT sufficient for this purpose. The Federal rules restrict any use of the information to criminally investigate or prosecute any alcohol or drug abuse patient.The records that you are about to access may contain highly sensitive health information, the redisclosure of which is protected by Article 27-F of the [facility] Public Health law. If you continue you may have access to information: Regarding HIV / AIDS; Provided by facilities licensed or operated by the [facility] Office of Mental Health; or Provided by the [facility] Office for People With Developmental Disabilities. If such information is present, then the following [facility] mandated warning applies: This information has been disclosed to you from confidential records which are protected by state law. State law prohibits you from making any further disclosure of this information without the specific written consent of the person to whom it pertains, or as otherwise permitted by law. Any unauthorized further disclosure in violation of state law may result in a fine or fci sentence or both. A general authorization for the release of medical or other information is NOT sufficient authorization for further disc losure. Allergies and Adverse Reactions Type Description Substance Reaction Status Data Source(s ) Allergy to substance Allergy to substance Allergy to substance [facility] ([facility]) Allergy to substance Allergy to substance Allergy to substance [facility] ([facility]) Allergy to substance Allergy to substance Allergy to substance [facility] ([facility]) Family History Family Member Name Family Member Gender Family Member Status Date o f Status Description Data Source(s) Unknown Male Problem [facility] ([facility]) Encounters Encounter Providers Location Date Indications Data Source(s ) Outpatient Attender: Carla Ryder neida 01/26/2021 11:50:00 AM EDT [facility] ([facility], [facility] Outpatient [address] [facility] [id number] 01/12/2021 12:00:00 AM EDT eCW1 ([facility]) Unknown [address] [facility] [place] [id number] 01/08/2021 12:00:00 AM EDT eCW1 ([facility]) Outpatient [address] [facility] Y [id number] 12/29/2020 12:00:00 AM EDT eCW1 ([facility]) Outpatient [address] [facility] Y [id number] 12/01/2020 12:00:00 AM EDT eCW1 ([facility]) Outpatient [address] [facility] Y [id number] 11/17/2020 12:00:00 AM EDT eCW1 ([facility]) Outpatient [address] [facility] Y [id number] 11/03/2020 12:00:00 AM EDT eCW1 ([facility]) [place] [address] [facility] [address] 11/03/2020 12:00:00 AM EDT eCW1 ([facility]) [place] [address] [facility] [address] 10/25/2020 12:00:00 AM EDT eCW1 ([facility]) [place] [address] [facility] [address] 10/20/2020 12:00:00 AM EDT eCW1 ([facility]) [place] [address] [facility] [address] 10/06/2020 12:00:00 AM EDT eCW1 ([facility]) [place] [address] [facility] [address] 09/21/2020 12:00:00 AM EDT eCW1 ([facility]) [place] [address] [facility] [address] 09/01/2020 12:00:00 AM EDT eCW1 ([facility]) [place] [address] [facility] [address] 08/18/2020 12:00:00 AM EDT eCW1 ([facility]) [place] [address] [facility] [address] 08/04/2020 12:00:00 AM EDT eCW1 ([facility]) [place] [address] [facility] [id number] 07/28/2020 12:00:00 AM EDT eCW1 ([facility]) [place] [address] [facility] [id number] 07/26/2020 12:00:00 AM EDT eCW1 ([facility]) [place] [address] [facility] [address] 07/21/2020 12:00:00 AM EDT eCW1 ([facility]) [place] [address] [facility] [address] 07/10/2020 12:00:00 AM EDT [facility]CW1 ([facility] [place] [address] [facility] [address] 06/28/2020 12:00:00 AM EDT eCW1 ([facility]) [place] [address] [facility] [address] 06/09/2020 12:00:00 AM EDT eCW1 ([facility]) [place]patient [address] [facility] [address] 05/26/2020 12:00:00 AM EST eCW1 ([facility]) Outpatient [address] [facility] [place] [id number] 05/12/2020 12:00:00 AM EST eCW1 ([facility]) Outpatient [address] [facility] [place] [id number] 04/28/2020 12:00:00 AM EST eCW1 ([facility]) Ash Jaime MD: [address] [facility], [facility] [address], [place] [address], Ph. Attender: Ash Jaime MD IN - [facility] Medical 04/12/2020 12:00:00 AM EST [facility] ([facility]) Outpatient [address] [facility] [place] [id number] 04/11/2020 12:00:00 AM EST eCW1 ([facility]) [place]patient [address] [facility] [address] 03/28/2020 12:00:00 AM EST eCW1 ([facility]) Outpatient [address] [facility] [place] [id number] 03/23/2020 12:00:00 AM EST eCW1 ([facility]) Outpatient [address] [facility] [place] [id number] 03/10/2020 12:00:00 AM EST eCW1 ([facility]) Outpatient [address] [facility] [place] [address] 02/25/2020 12:00:00 AM EST eCW1 ([facility]) [place] [address] [facility] [address] 02/11/2020 12:00:00 AM EST eCW1 ([facility]) Raji Camara RPA-C: [address], [place] [address], Ph. Attender: RAJI CAMARA RPA-C [facility] Medical 01/31/2020 12:00:00 AM EST [place] ([facility]) Raji Camara RPA-C: [address], [place] [address], Ph. Attender: RAJI CAMARA RPA-C [facility] Medical 01/31/2020 12:00:00 AM EST [place] ([facility]) Raji Camara RPA-C: [address], [address], [place] [address], Ph. Attender: RAJI LOBOC [facility] Medical 01/31/2020 12:00:00 AM EST [place] ([facility]) Raji Camara RPA-C: [address], [place] [address], Ph. Attender: RAJI CAMARA RPA-C [facility] Medical 01/17/2020 12:00:00 AM EDT [facility] ([facility]) Raji Camara RPA-C: [address], [place] [address], Ph. Attender: RAJI CAMARA RPA-C [facility] Medical 01/17/2020 12:00:00 AM EDT [facility] ([facility]) Raji Camara RPA-C: [address] [facility], [address], [place] [address], Ph. Attender: RAJI CAMARA RPA-C [facility] Medical 01/17/2020 12:00:00 AM EDT [place] ([facility]) [place] [address] [facility] [address] 01/14/2020 12:00:00 AM EDT eCW1 ([facility]) Outpatient Attender: Ash Jaime MD CT 01/04/2020 02:56:04 PM EDT [facility] Outpatient [address] [facility] [address] 12/31/2019 12:00:00 AM EDT eCW1 ([facility]) Outpatient Attender: Ash Jaime MD CT 12/17/2019 05:07:01 PM EDT [facility] Outpatient Attender: Ash Jaime MD CT 12/17/2019 10:22:02 AM EDT [facility] Outpatient Attender: Ash Jaime MD CT 12/17/2019 10:21:00 AM EDT [facility] Immunizations Vaccine Date Status Description Data Source(s) influenza, recombinant, quadrIvalent,injectable, prese rvative free 01/12/2021 03:08:00 PM EDT completed eCW1 ([facility]) COVID-19 dose #1 given elsewhere Unspecified 10/25/2020 11:2 9:00 AM EDT completed eCW1 ([facility]) COVID-19 dose #2 given elsewhere Unspecified 10/25/2020 11:2 9:00 AM EDT completed eCW1 ([facility]) COVID-19 dose #1 given elsewhere Unspecified 10/25/2020 11:2 9:00 AM EDT completed eCW1 ([facility]) COVID-19 dose #2 given elsewhere Unspecified 10/25/2020 11:2 9:00 AM EDT completed eCW1 ([facility]) COVID-19 dose #1 given elsewhere Unspecified 10/25/2020 11:2 9:00 AM EDT completed eCW1 ([facility]) COVID-19 dose #2 given elsewhere Unspecified 10/25/2020 11:2 9:00 AM EDT completed eCW1 ([facility]) COVID-19 dose #1 given elsewhere Unspecified 10/25/2020 11:2 9:00 AM EDT completed eCW1 ([facility]) COVID-19 dose #2 given elsewhere Unspecified 10/25/2020 11:2 9:00 AM EDT completed eCW1 ([facility]) COVID-19 dose #1 given elsewhere Unspecified 10/25/2020 11:2 9:00 AM EDT completed eCW1 ([facility]) COVID-19 dose #2 given elsewhere Unspecified 10/25/2020 11:2 9:00 AM EDT completed eCW1 ([facility]) COVID-19 dose #1 given elsewhere Unspecified 10/25/2020 11:2 9:00 AM EDT completed eCW1 ([facility]) COVID-19 dose #2 given elsewhere Unspecified 10/25/2020 11:2 9:00 AM EDT completed eCW1 ([facility]) COVID-19 dose #1 given elsewhere Unspecified 10/25/2020 11:2 9:00 AM EDT completed eCW1 ([facility]) COVID-19 dose #2 given elsewhere Unspecified 10/25/2020 11:2 9:00 AM EDT completed eCW1 ([facility]) COVID-19 dose #1 given elsewhere Unspecified 10/25/2020 11:2 9:00 AM EDT completed eCW1 ([facility]) COVID-19 dose #2 given elsewhere Unspecified 10/25/2020 11:2 9:00 AM EDT completed eCW1 ([facility]) COVID-19 VACCINE Pfizer 09/09/2020 12:00:00 AM EDT completed [facility] Vaccine Series Complete: YESThis Data wa s Submitted to [facility] Via [employer]. COVID-19 VACC, MRNA(PFIZER)/PF 09/09/2020 12:00:00 AM EDT completed [facility] COVID-19 VACC, MRNA(PFIZER)/PF 08/19/2020 12:00:00 AM EDT completed [facility] COVID-19 VACCINE Pfizer 08/19/2020 12:00:00 AM EDT completed [facility] Vaccine Series Complete: NOThis Data was Submitted to [facility] Via [employer]. influenza, recombinant, quadrIvalent,injectable, prese rvative free 03/28/2020 01:54:00 PM EST completed eCW1 ([facility]) influenza, recombinant, quadrIvalent,injectable, prese rvative free 03/28/2020 01:54:00 PM EST completed eCW1 ([facility]) influenza, recombinant, quadrIvalent,injectable, prese rvative free 03/28/2020 01:54:00 PM EST completed eCW1 ([facility]) influenza, recombinant, quadrIvalent,injectable, prese rvative free 03/28/2020 01:54:00 PM EST completed eCW1 ([facility]) influenza, recombinant, quadrIvalent,injectable, prese rvative free 03/28/2020 01:54:00 PM EST completed eCW1 ([facility]) influenza, recombinant, quadrIvalent,injectable, prese rvative free 03/28/2020 01:54:00 PM EST completed eCW1 ([facility]) influenza, recombinant, quadrIvalent,injectable, prese rvative free 03/28/2020 01:54:00 PM EST completed eCW1 ([facility]) influenza, recombinant, quadrIvalent,injectable, prese rvative free 03/28/2020 01:54:00 PM EST completed eCW1 ([facility]) influenza, recombinant, quadrIvalent,injectable, prese rvative free 03/28/2020 01:54:00 PM EST completed eCW1 ([facility]) influenza, recombinant, quadrIvalent,injectable, prese rvative free 03/28/2020 01:54:00 PM EST completed eCW1 ([facility]) influenza, recombinant, quadrIvalent,injectable, prese rvative free 03/28/2020 01:54:00 PM EST completed eCW1 ([facility]) influenza, recombinant, quadrIvalent,injectable, prese rvative free 03/28/2020 01:54:00 PM EST completed eCW1 ([facility]) influenza, recombinant, quadrIvalent,injectable, prese rvative free 03/28/2020 01:54:00 PM EST completed eCW1 ([facility]) influenza, recombinant, quadrIvalent,injectable, prese rvative free 03/28/2020 01:54:00 PM EST completed eCW1 ([facility]) influenza, recombinant, quadrIvalent,injectable, prese rvative free 03/28/2020 01:54:00 PM EST completed eCW1 ([facility]) influenza, recombinant, quadrIvalent,injectable, prese rvative free 03/28/2020 01:54:00 PM EST completed eCW1 ([facility]) influenza, recombinant, quadrIvalent,injectable, prese rvative free 03/28/2020 01:54:00 PM EST completed eCW1 ([facility]) influenza, recombinant, quadrIvalent,injectable, prese rvative free 03/28/2020 01:54:00 PM EST completed eCW1 ([facility]) influenza, recombinant, quadrIvalent,injectable, prese rvative free 03/28/2020 01:54:00 PM EST completed eCW1 ([facility]) influenza, recombinant, quadrIvalent,injectable, prese rvative free 03/28/2020 01:54:00 PM EST completed eCW1 ([facility]) influenza, recombinant, quadrIvalent,injectable, prese rvative free 03/28/2020 01:54:00 PM EST completed eCW1 ([facility]) influenza, recombinant, quadrIvalent,injectable, prese rvative free 03/28/2020 01:54:00 PM EST completed eCW1 ([facility]) influenza, recombinant, quadrIvalent,injectable, prese rvative free 03/28/2020 01:54:00 PM EST completed eCW1 ([facility]) influenza, recombinant, quadrIvalent,injectable, prese rvative free 03/28/2020 01:54:00 PM EST completed eCW1 ([facility]) influenza, recombinant, quadrIvalent,injectable, prese rvative free 03/28/2020 01:54:00 PM EST completed eCW1 ([facility]) INFLUENZA VIRUS VACCINE QUADRIVALENT (6 MOS AN D UP) 12/27/2019 12:00:00 AM EDT completed [facility] Medications Medication Brand Name Start Date Product Form Dose Route Admi nistrative Instructions Pharmacy Instructions Status Indications Reaction Description Data Source(s) 50 mg 08/08/2020 12:00:00 AM EDT tablet 30 TAKE 1 TABLET BY MOUTH EVERY MORNING TAKE 1 TABLET BY MOUTH EVERY MORNING SOLD: 08/16/2020 [facility] Azithromycin 250 MG Oral Tablet AZITHROMYCIN 07/29/2020 12:00:00 AM EDT tablet 6 TAKE TWO TABLETS BY MOUTH AT ONCE ON THE FIRST DAY THEN TAKE ONE DAILY THEREAFTER TAKE TWO TABLETS BY MOUTH AT ONCE ON THE FIRST DAY THEN TAKE ONE DAILY THEREAFTER SOLD: 07/29/2020 [facility] Famotidine 20 MG Oral Tablet FAMOTIDINE 06/09/2020 12:00:00 AM EDT tab let 30 TAKE ONE TABLET BY MOUTH EVERY DAY TAKE ONE TABLET BY MOUTH EVERY DAY SOLD: 06/20/2020 [facility] INHALER, ASSIST DEVICES 06/09/2020 12:00:00 AM EDT spacer 1 USE WITH INHALER USE WITH INHALER SOLD: 06/20/2020 [facility] 25 mcg (1,000 unit) 03/29/2020 12:00:00 AM EST capsule 30 TAKE 1 CAPSULE BY MOUTH ONCE A DAY TAKE 1 CAPSULE BY MOUTH ONCE A DAY SOLD: 04/03/2020 [facility] 25 mcg (1,000 unit) 03/29/2020 12:00:00 AM EST capsule 30 TAKE 1 CAPSULE BY MOUTH ONCE A DAY TAKE 1 CAPSULE BY MOUTH ONCE A DAY SOLD: 06/28/2020 [facility] Vitamin D-3 25 MCG (1000 UT) Vitamin D-3 25 MCG (1000 UT) 12:00:00 AM EST 1.0 {capsule} active Vitamin D- 3 25 MCG (1000 UT) eCW ([facility]) Vitamin D-3 25 MCG (1000 UT) Vitamin D-3 25 MCG (1000 UT) 12:00:00 AM EST 1.0 {capsule} active Vitamin D- 3 25 MCG (1000 UT) eCW ([facility]) Vitamin D-3 25 MCG (1000 UT) Vitamin D-3 25 MCG (1000 UT) 12:00:00 AM EST 1.0 {capsule} active Vitamin D- 3 25 MCG (1000 UT) [facility] ([facility]) Vitamin D-3 25 MCG (1000 UT) Vitamin D-3 25 MCG (1000 UT) 12:00:00 AM EST 1.0 {capsule} active Vitamin D- 3 25 MCG (1000 UT) eCW ([facility]) Vitamin D-3 25 MCG (1000 UT) Vitamin D-3 25 MCG (1000 UT) 12:00:00 AM EST 1.0 {capsule} active Vitamin D- 3 25 MCG (1000 UT) W ([facility]) Vitamin D-3 25 MCG (1000 UT) Vitamin D-3 25 MCG (1000 UT) 12:00:00 AM EST 1.0 {capsule} active Vitamin D- 3 25 MCG (1000 UT) eCW ([facility]) Vitamin D-3 25 MCG (1000 UT) Vitamin D-3 25 MCG (1000 UT) 12:00:00 AM EST 1.0 {capsule} active Vitamin D- 3 25 MCG (1000 UT) W ([facility]) 50 mg 03/28/2020 12:00:00 AM EST tablet 30 TAKE ONE TABLET BY MOUTH EVERY DAY TAKE ONE TABLET BY MOUTH EVERY DAY SOLD: 05/17/2020 [facility] Vitamin D-3 25 MCG (1000 UT) Vitamin D-3 25 MCG (1000 UT) 12:00:00 AM EST 1.0 {capsule} active Vitamin D- 3 25 MCG (1000 UT) eCW1 ([facility]) Vitamin D-3 25 MCG (1000 UT) Vitamin D-3 25 MCG (1000 UT) 12:00:00 AM EST 1.0 {capsule} active Vitamin D- 3 25 MCG (1000 UT) eCW1 ([facility]) Vitamin D-3 25 MCG (1000 UT) Vitamin D-3 25 MCG (1000 UT) 12:00:00 AM EST 1.0 {capsule} active Vitamin D- 3 25 MCG (1000 UT) eCW1 ([facility]) Vitamin D-3 25 MCG (1000 UT) Vitamin D-3 25 MCG (1000 UT) 12:00:00 AM EST 1.0 {capsule} active Vitamin D- 3 25 MCG (1000 UT) eCW1 ([facility]) Vitamin D-3 25 MCG (1000 UT) Vitamin D-3 25 MCG (1000 UT) 12:00:00 AM EST 1.0 {capsule} active Vitamin D- 3 25 MCG (1000 UT) eCW1 ([facility]) 50 mg 03/28/2020 12:00:00 AM EST tablet 30 TAKE ONE TABLET BY MOUTH EVERY DAY TAKE ONE TABLET BY MOUTH EVERY DAY SOLD: 04/03/2020 [facility] Vitamin D-3 25 MCG (1000 UT) Vitamin D-3 25 MCG (1000 UT) 12:00:00 AM EST 1.0 {capsule} active Vitamin D- 3 25 MCG (1000 UT) eCW1 ([facility]) Vitamin D-3 25 MCG (1000 UT) Vitamin D-3 25 MCG (1000 UT) 12:00:00 AM EST 1.0 {capsule} active Vitamin D- 3 25 MCG (1000 UT) eCW1 ([facility]) Vitamin D-3 25 MCG (1000 UT) Vitamin D-3 25 MCG (1000 UT) 12:00:00 AM EST 1.0 {capsule} active Vitamin D- 3 25 MCG (1000 UT) eCW1 ([facility]) Vitamin D-3 25 MCG (1000 UT) Vitamin D-3 25 MCG (1000 UT) 12:00:00 AM EST 1.0 {capsule} active Vitamin D- 3 25 MCG (1000 UT) eCW1 ([facility]) Vitamin D-3 25 MCG (1000 UT) Vitamin D-3 25 MCG (1000 UT) 12:00:00 AM EST 1.0 {capsule} active Vitamin D- 3 25 MCG (1000 UT) eCW1 ([facility]) Vitamin D-3 25 MCG (1000 UT) Vitamin D-3 25 MCG (1000 UT) 12:00:00 AM EST 1.0 {capsule} active Vitamin D- 3 25 MCG (1000 UT) W1 ([facility]) Vitamin D-3 25 MCG (1000 UT) Vitamin D-3 25 MCG (1000 UT) 12:00:00 AM EST 1.0 {capsule} active Vitamin D- 3 25 MCG (1000 UT) eCW1 ([facility]) Vitamin D-3 25 MCG (1000 UT) Vitamin D-3 25 MCG (1000 UT) 12:00:00 AM EST 1.0 {capsule} active Vitamin D- 3 25 MCG (1000 UT) W ([facility]) 50 mg 03/28/2020 12:00:00 AM EST tablet 30 TAKE ONE TABLET BY MOUTH EVERY DAY TAKE ONE TABLET BY MOUTH EVERY DAY SOLD: 06/28/2020 [facility] Vitamin D-3 25 MCG (1000 UT) Vitamin D-3 25 MCG (1000 UT) 12:00:00 AM EST 1.0 {capsule} active Vitamin D- 3 25 MCG (1000 UT) eCW1 ([facility]) Vitamin D-3 25 MCG (1000 UT) Vitamin D-3 25 MCG (1000 UT) 12:00:00 AM EST 1.0 {capsule} active Vitamin D- 3 25 MCG (1000 UT) eCW1 ([facility]) Vitamin D-3 25 MCG (1000 UT) Vitamin D-3 25 MCG (1000 UT) 12:00:00 AM EST 1.0 {capsule} active Vitamin D- 3 25 MCG (1000 UT) eCW1 ([facility]) Vitamin D-3 25 MCG (1000 UT) Vitamin D-3 25 MCG (1000 UT) 12:00:00 AM EST 1.0 {capsule} active Vitamin D- 3 25 MCG (1000 UT) eCW1 ([facility]) Vitamin D-3 25 MCG (1000 UT) Vitamin D-3 25 MCG (1000 UT) 12:00:00 AM EST 1.0 {capsule} active Vitamin D- 3 25 MCG (1000 UT) eCW1 ([facility]) 25 mg 02/07/2020 12:00:00 AM EST tablet 10 TAKE ONE TABLET BY MOUTH EVERY DAY TAKE ONE TABLET BY MOUTH EVERY DAY SOLD: 02/09/2020 [facility] 25 mg 01/11/2020 12:00:00 AM EDT tablet 30 TAKE ONE TABLET BY MOUTH EVERY DAY TAKE ONE TABLET BY MOUTH EVERY DAY SOLD: 01/12/2020 [facility] Insurance Providers Payer name Policy type / Coverage type Policy ID Covered democrat ID Covered democrat's relationship to zamora Policy Zamora Plan Information Foreign Serv. [employer] Plan Commercial CovDenty's [id number] Family Dependent Coventry Foreign Serv. [employer] Plan Commercial [id number] Family Dependent [id number] AETNA [facility] [id number] FA2 [id number] FOREIGN SERVICE BENEFIT PLAN [id number] FA2 [id number] FOREIGN SERVICE BENEFIT PLAN [id number] FA2 [id number] FORIEGN SERVICES BENIFIT P [id number] C [id number] P UNAVAILABLE UNAVAILA BLE AETNA [id number] FA2 [id number] AETNA [facility] [place] [id number] SP [id number] Problems, Conditions, and Diagnoses Code Display Name Description Problem Type Effective Dates Data Source(s) Z23 [id number] Encounter for immunization Problem 12:00:00 AM EDT eCW1 ([facility]) N39.46 [id number] Mixed stress and urge urinary incontinenc e Problem 10/25/2020 12:00:00 AM EDT eCW1 ([facility]) E66.01 [id number] Morbid (severe) obesity due to excess nicolas ories Problem 10/25/2020 12:00:00 AM EDT eCW1 ([facility]) Z68.41 [id number] Body mass index (BMI) of 40.1 to 44.9 in adult Problem 07/26/2020 12:00:00 AM EDT eCW1 ([facility]) E66.01 [id number] Morbid obesity due to excess calories Pro blem 07/26/2020 12:00:00 AM EDT eCW1 ([facility]) V01.79 Contact with and (suspected) exposure to other viral communicable diseases Contact with and (suspected) exposure to other viral communicable diseases 12/17/2019 10:20:47 AM EDT [facility] Surgeries/Procedures Procedure Description Date Indications Data Source(s) OFFICE OUTPATIENT NEW 30 MINUTES 01/26/2021 12:00:00 A M EDT [place] ([facility], [facility]) Imm: Flublok Quadrivalent 18 years & older 0.5mL IM Influenz a 01/12/2021 12:00:00 AM EDT eCW1 ([facility]) PROF SVCS ALLG IMMNTX X W/PRV ALLGIC XTRCS NJXS 2020 12:00:00 AM EDT eCW1 ([facility]) PROF SVCS ALLG IMMNTX X W/PRV ALLGIC XTRCS NJXS 2020 12:00:00 AM EDT eCW1 ([facility]) PROF SVCS ALLG IMMNTX X W/PRV ALLGIC XTRCS NJXS 2020 12:00:00 AM EDT eCW1 ([facility]) PROF SVCS ALLG IMMNTX X W/PRV ALLGIC XTRCS NJXS 2020 12:00:00 AM EDT eCW1 ([facility]) PROF SVCS ALLG IMMNTX X W/PRV ALLGIC XTRCS NJXS 2020 12:00:00 AM EDT eCW1 ([facility]) PROF SVCS ALLG IMMNTX X W/PRV ALLGIC XTRCS NJXS 2020 12:00:00 AM EDT eCW1 ([facility]) PROF SVCS ALLG IMMNTX X W/PRV ALLGIC XTRCS NJXS 2020 12:00:00 AM EDT eCW1 ([facility]) PROF SVCS ALLG IMMNTX X W/PRV ALLGIC XTRCS NJXS 2020 12:00:00 AM EDT eCW1 ([facility]) PROF SVCS ALLG IMMNTX X W/PRV ALLGIC XTRCS NJXS 2020 12:00:00 AM EDT eCW1 ([facility]) PROF SVCS ALLG IMMNTX X W/PRV ALLGIC XTRCS NJXS 2020 12:00:00 AM EDT eCW1 ([facility]) PROF SVCS ALLG IMMNTX X W/PRV ALLGIC XTRCS NJXS 2020 12:00:00 AM EDT eCW1 ([facility]) PROF SVCS ALLG IMMNTX X W/PRV ALLGIC XTRCS NJXS 2020 12:00:00 AM EDT eCW1 ([facility]) PROF SVCS ALLG IMMNTX X W/PRV ALLGIC XTRCS NJXS 2020 12:00:00 AM EDT eCW1 ([facility]) PROF SVCS ALLG IMMNTX X W/PRV ALLGIC XTRCS NJXS 2020 12:00:00 AM EDT eCW1 ([facility]) PROF SVCS ALLG IMMNTX X W/PRV ALLGIC XTRCS NJXS 2020 12:00:00 AM EST eCW1 ([facility]) PROF SVCS ALLG IMMNTX X W/PRV ALLGIC XTRCS NJXS 2020 12:00:00 AM EST eCW1 ([facility]) PROF SVCS ALLG IMMNTX X W/PRV ALLGIC XTRCS NJXS 2020 12:00:00 AM EST eCW1 ([facility]) PROF SVCS ALLG IMMNTX X W/PRV ALLGIC XTRCS NJXS 2020 12:00:00 AM EST eCW1 ([facility]) PROF SVCS ALLG IMMNTX X W/PRV ALLGIC XTRCS NJXS 2019 12:00:00 AM EST eCW1 ([facility]) PROF SVCS ALLG IMMNTX X W/PRV ALLGIC XTRCS NJXS 2019 12:00:00 AM EST eCW1 ([facility]) PROF SVCS ALLG IMMNTX X W/PRV ALLGIC XTRCS NJXS 2019 12:00:00 AM EST eCW1 ([facility]) PROF SVCS ALLG IMMNTX X W/PRV ALLGIC XTRCS NJXS 2019 12:00:00 AM EST eCW1 ([facility]) PROF SVCS ALLG IMMNTX X W/PRV ALLGIC XTRCS NJXS 2019 12:00:00 AM EDT eCW1 ([facility]) PROF SVCS ALLG IMMNTX X W/PRV ALLGIC XTRCS NJXS 2019 12:00:00 AM EDT eCW1 ([facility]) Results ID Date Data Source [id number] 01/26/2021 03:18:00 PM EDT [facility] ([facility]) Name Value Range Interpretation Code Description Data Melvina rce(s) Supporting Document(s) Bacteria identified in Throat by Culture Laboratory test result [facility] ([facility]) FULL REPORT IN LAB NOTES (eCW and [facility] ). NORMAL DAVINA PRESENT ID Date Data Source [id number] 01/25/2021 06:10:00 PM EDT [facility] Name Value Range Interpretation Code Description Data Melvina rce(s) Supporting Document(s) SARS coronavirus 2 RdRp gene Covid_negative [facility] This lab was ordered by [facility] and reported by [employer] ID Date Data Source [id number] 10/29/2020 01:54:00 AM EDT [facility] FASTING:YESFASTING: YESReceived: 021 at 13:39:00 QPT: [facility], [address], [address] [place] [address], [phone] MD Received: 10/26/2020 at 13:39:00 QPT : [facility], [address], [address] [place] [address], [phone] MD Received: 10/26/2020 at 13:39:00 QPT : [facility], [address], [address] [place] [address], [phone] MD Received: 10/26/2020 at 13:39:00 QPT : [facility], [address], [address] [place] [address], [phone] MD Received: 10/26/2020 at 13:39:00 QPT : [facility], [address], [address] [place] [address], [phone] MD Received: 10/26/2020 at 13:39:00 QPT : [facility], [address], [address] [place] [address], [phone] MD Received: 10/26/2020 at 13:39:00 QPT : [facility], [address], [address] [place] [address], [phone] MD Received: 10/26/2020 at 13:39:00 QPT : [facility], [address], [address] [place] [address], [phone] MD Received: 10/26/2020 at 13:39:00 QPT : [facility], [address], [address] [place], [address], Julio Napoles MD Received: 10/26/2020 at 13:39:00 QPT : [facility], [address], [address] [place], [phone], Julio Napoles MD Received: 10/26/2020 at 13:39:00 QPT : [facility], [address], [address] [place], [phone] MD Received: 10/26/2020 at 13:39:00 QPT : [facility], [address], [address] [place] [address], [phone], Julio Napoles MD Name Value Range Interpretation Code Description Data Melvina rce(s) Supporting Document(s) ID Date Data Source [id number] 10/29/2020 01:35:00 AM EDT [facility] FASTING:YESFASTING: YESReceived: 021 at 13:39:00 QPT: [facility], [address], [address] [place] [address], [phone] MD Received: 10/26/2020 at 13:39:00 QPT : [facility], [address], [address] [place] [address], [phone] MD Received: 10/26/2020 at 13:39:00 QPT : [facility], [address], [address] [place] [address], [phone] MD Received: 10/26/2020 at 13:39:00 QPT : [facility], [address], [address] [place] [address], [phone] MD Received: 10/26/2020 at 13:39:00 QPT : [facility], [address], [address] [place] [address], [phone] MD Received: 10/26/2020 at 13:39:00 QPT : [facility], [address], [address] [place], [phone], Julio Napoles MD Received: 10/26/2020 at 13:39:00 QPT : [facility], [address], [address] [place], [phone], Julio Napoles MD Received: 10/26/2020 at 13:39:00 QPT : [facility], [address], [address] [place] [address], [phone], Julio Napoles MD Received: 10/26/2020 at 13:39:00 QPT : [facility], [address], [address] [place] [address], [phone], Julio Napoels MD Received: 10/26/2020 at 13:39:00 QPT : [facility], [address], [address] [place] [address], [phone], Julio Napoles MD Received: 10/26/2020 at 13:39:00 QPT : [facility], [address], [address] [place] [address], [phone], Julio Napoles MD Received: 10/26/2020 at 13:39:00 QPT : [facility], [address], [address] [place] [address], [phone], Julio Napoles MD Name Value Range Interpretation Code Description Data Melvina rce(s) Supporting Document(s) Cholesterol [Mass/volume] in Serum or Plasma 226 mg/dL <170 Ab ove high normal [facility] ID Date Data Source [id number] 10/29/2020 01:35:00 AM EDT [facility] FASTING:YESFASTING: YESReceived: 021 at 13:39:00 QPT: [facility], [address], [address] [place] [address], [phone] MD Received: 10/26/2020 at 13:39:00 QPT : [facility], [address], [address] [place], [address], Julio Napoles MD Received: 10/26/2020 at 13:39:00 QPT : [facility], [address], [address] [place] [address], [phone], Julio Napoles MD Received: 10/26/2020 at 13:39:00 QPT : [facility], [address], [address] [place] [address], [phone], Julio Napoles MD Received: 10/26/2020 at 13:39:00 QPT : [facility], [address], [address] [place] [address], [phone], Julio Napoles MD Received: 10/26/2020 at 13:39:00 QPT : [facility], [address], [address] [place] [address], [phone], Julio Napoles MD Received: 10/26/2020 at 13:39:00 QPT : [facility], [address], [address] [place] [address], [phone], Julio Napoles MD Received: 10/26/2020 at 13:39:00 QPT : [facility], [address], [address] [place] [address], [phone], Julio Napoles MD Received: 10/26/2020 at 13:39:00 QPT : [facility], [address], [address] [place] [address], [phone], Julio Napoles MD Received: 10/26/2020 at 13:39:00 QPT : [facility], [address], [address] [place] [address], [phone], Julio Napoles MD Received: 10/26/2020 at 13:39:00 QPT : [facility], [address], [address] [place], [phone] MD Received: 10/26/2020 at 13:39:00 QPT : [facility], [address], [address] [place] [address], [phone], Julio Napoles MD Name Value Range Interpretation Code Description Data Melvina rce(s) Supporting Document(s) Cholesterol in HDL [Mass/volume] in Serum or Plasma 44 mg/dL >45 Below low normal [facility] ID Date Data Source [id number] 10/29/2020 01:54:00 AM EDT [facility] FASTING:YESFASTING: YESReceived: 021 at 13:39:00 QPT: [facility], [address], [address] [place] [address], [phone] MD Received: 10/26/2020 at 13:39:00 QPT : [facility], [address], [address] [place] [address], [phone], Julio Napoles MD Received: 10/26/2020 at 13:39:00 QPT : [facility], [address], [address] [place] [address], [phone] MD Received: 10/26/2020 at 13:39:00 QPT : [facility], [address], [address] [place] [address], [phone] MD Received: 10/26/2020 at 13:39:00 QPT : [facility], [address], [address] [place] [address], [phone] MD Received: 10/26/2020 at 13:39:00 QPT : [facility], [address], [address] [place] [address], [phone] MD Received: 10/26/2020 at 13:39:00 QPT : [facility], [address], [address] [place] [address], [phone] MD Received: 10/26/2020 at 13:39:00 QPT : [facility], [address], [address] [place], [address], Julio Napoles MD Received: 10/26/2020 at 13:39:00 QPT : [facility], [address], [address] [place], [phone], Julio Naoples MD Received: 10/26/2020 at 13:39:00 QPT : [facility], [address], [address] [place] [address], [phone], Julio Napoles MD Received: 10/26/2020 at 13:39:00 QPT : [facility], [address], [address] [place] [address], [phone], Julio Napoles MD Received: 10/26/2020 at 13:39:00 QPT : [facility], [address], [address] [place] [address], [phone], Julio Napoles MD Name Value Range Interpretation Code Description Data Melvina rce(s) Supporting Document(s) Cholesterol [Mass/volume] in Serum or Plasma 226 mg/dL <170 Ab ove high normal [facility] ID Date Data Source [id number] 10/29/2020 01:35:00 AM EDT [facility] FASTING:YESFASTING: YESReceived: 021 at 13:39:00 QPT: [facility], [address], [address] [place], [address]Julio MD Received: 10/26/2020 at 13:39:00 QPT : [facility], [address], [address] [place], [address]Julio MD Received: 10/26/2020 at 13:39:00 QPT : [facility], [address], [address] [place] [address], [phone] MD Received: 10/26/2020 at 13:39:00 QPT : [facility], [address], [address] [place], [phone], Julio Napoles MD Received: 10/26/2020 at 13:39:00 QPT : [facility], [address], [address] [place], [address], Julio Napoles MD Received: 10/26/2020 at 13:39:00 QPT : [facility], [address], [address] [place] [address], [phone], Julio Napoles MD Received: 10/26/2020 at 13:39:00 QPT : [facility], [address], [address] [place] [address], [phone], Julio Napoles MD Received: 10/26/2020 at 13:39:00 QPT : [facility], [address], [address] [place] [address], [phone], Julio Napoles MD Received: 10/26/2020 at 13:39:00 QPT : [facility], [address], [address] [place] [address], [phone], Julio Napoles MD Received: 10/26/2020 at 13:39:00 QPT : [facility], [address], [address] [place] [address], [phone], Julio Napoles MD Received: 10/26/2020 at 13:39:00 QPT : [facility], [address], [address] [place] [address], [phone], Julio Napoles MD Received: 10/26/2020 at 13:39:00 QPT : [facility], [address], [address] [place], [address], Julio Napoles MD Name Value Range Interpretation Code Description Data Melvina rce(s) Supporting Document(s) Triglyceride [Mass/volume] in Serum or Plasma 82 mg/dL <9 0 Normal (applies to non-numeric results) [facility] ID Date Data Source [id number] 10/29/2020 01:35:00 AM EDT [facility] FASTING:YESFASTING: YESReceived: 021 at 13:39:00 QPT: [facility], [address], [address] [place] [address], [phone], Julio Napoles MD Received: 10/26/2020 at 13:39:00 QPT : [facility], [address], [address] [place] [address], [address], Julio Napoles MD Received: 10/26/2020 at 13:39:00 QPT : [facility], [address], [address] [place] [address], [address], Julio Napoles MD Received: 10/26/2020 at 13:39:00 QPT : [facility], [address], [address] [place] [address], [address], Julio Napoles MD Received: 10/26/2020 at 13:39:00 QPT : [facility], [address], [address] [place] [address], [address], Julio Napoles MD Received: 10/26/2020 at 13:39:00 QPT : [facility], [address], [address] [place] [address], [phone] MD Received: 10/26/2020 at 13:39:00 QPT : [facility], [address], [address] [place] [address], [address]Julio MD Received: 10/26/2020 at 13:39:00 QPT : [facility], [address], [address] [place] [address], [address]Julio MD Received: 10/26/2020 at 13:39:00 QPT : [facility], [address], [address] [place], [address]Julio MD Received: 10/26/2020 at 13:39:00 QPT : [facility], [address], [address] [place], [address]Julio MD Received: 10/26/2020 at 13:39:00 QPT : [facility], [address], [address] [place], [address]Julio MD Received: 10/26/2020 at 13:39:00 QPT : [facility], [address], [address] [place], [address], Julio Napoles MD Name Value Range Interpretation Code Description Data Melvina rce(s) Supporting Document(s) Cholesterol in LDL [Mass/volume] in Serum or Plasma by calculation 163 mg/dL (calc) <110 Above high normal [facility] LDL-C is now calculated using the Syed -Nishacalculation, which is a validated novel method providingbetter accuracy than the Friedewald equation in theestimation of LDL-C.Syed SS et al. EVANGELINA. 2013;310(19): 9343-6731(http://education.[employer]/faq/MDM638) ID Date Data Source [id number] 10/29/2020 01:35:00 AM EDT [facility] FASTING:YESFASTING: YESReceived: 021 at 13:39:00 QPT: [facility], [address], [address] [place], [address]Julio MD Received: 10/26/2020 at 13:39:00 QPT : [facility], [address], [address] [place], [address]Julio MD Received: 10/26/2020 at 13:39:00 QPT : [facility], [address], [address] [place], [address]Julio MD Received: 10/26/2020 at 13:39:00 QPT : [facility], [address], [address] [place], [address], Julio Napoles MD Received: 10/26/2020 at 13:39:00 QPT : [facility], [address], [address] [place], [address], Julio Napoles MD Received: 10/26/2020 at 13:39:00 QPT : [facility], [address], [address] [place], [address], Julio Napoles MD Received: 10/26/2020 at 13:39:00 QPT : [facility], [address], [address] [place] [address], [address], Julio Napoles MD Received: 10/26/2020 at 13:39:00 QPT : [facility], [address], [address] [place] [address], [address], Julio Napoles MD Received: 10/26/2020 at 13:39:00 QPT : [facility], [address], [address] [place] [address], [address], Julio Napoles MD Received: 10/26/2020 at 13:39:00 QPT : [facility], [address], [address] [place] [address], [address], Julio Napoles MD Received: 10/26/2020 at 13:39:00 QPT : [facility], [address], [address] [place], [address]Julio MD Received: 10/26/2020 at 13:39:00 QPT : [facility], [address], [address] [place] [address], [address], Julio Napoles MD Name Value Range Interpretation Code Description Data Melvina rce(s) Supporting Document(s) Cholesterol.total/Cholesterol in HDL [Mass Ratio] in Serum o r Plasma 5.1 (calc) <5.0 Above high normal [facility] ID Date Data Source [id number] 10/29/2020 01:35:00 AM EDT [facility] FASTING:YESFASTING: YESReceived: 021 at 13:39:00 QPT: [facility], [address], [address] [place], [address], Julio Napoles MD Received: 10/26/2020 at 13:39:00 QPT : [facility], [address], [address] [place] [address], [address], Julio Napoles MD Received: 10/26/2020 at 13:39:00 QPT : [facility], [address], [address] [place] [address], [address], Julio Napoles MD Received: 10/26/2020 at 13:39:00 QPT : [facility], [address], [address] [place] [address], [address], Julio Napoles MD Received: 10/26/2020 at 13:39:00 QPT : [facility], [address], [address] [place] [address], [address], Julio Napoles MD Received: 10/26/2020 at 13:39:00 QPT : [facility], [address], [address] [place] [address], [phone] MD Received: 10/26/2020 at 13:39:00 QPT : [facility], [address], [address] [place] [address], [address]Julio MD Received: 10/26/2020 at 13:39:00 QPT : [facility], [address], [address] [place] [address], [address]Julio MD Received: 10/26/2020 at 13:39:00 QPT : [facility], [address], [address] [place] [address], [address]Julio MD Received: 10/26/2020 at 13:39:00 QPT : [facility], [address], [address] [place], [address]Julio MD Received: 10/26/2020 at 13:39:00 QPT : [facility], [address], [address] [place], [address]Julio MD Received: 10/26/2020 at 13:39:00 QPT : [facility], [address], [address] [place], [address], Julio Napoles MD Name Value Range Interpretation Code Description Data Melvina rce(s) Supporting Document(s) Cholesterol non HDL [Mass/volume] in Serum or Plasma 182 mg/dL ( calc) <120 Above high normal [facility] For patients with diabetes plus 1 major ASCVD riskfactor, treating to a non-HDL-C goal of <100 mg/dL(LDL-C of <70 mg/dL) is considered a therapeuticoption. ID Date Data Source [id number] 10/29/2020 01:54:00 AM EDT [facility] FASTING:YESFASTING: YESReceived: 021 at 13:39:00 QPT: [facility], [address], [address] [place], [address]Julio MD Received: 10/26/2020 at 13:39:00 QPT : [facility], [address], [address] [place], [address]Julio MD Received: 10/26/2020 at 13:39:00 QPT : [facility], [address], [address] [place], [address]Julio MD Received: 10/26/2020 at 13:39:00 QPT : [facility], [address], [address] [place] [address], [address]Julio MD Received: 10/26/2020 at 13:39:00 QPT : [facility], [address], [address] [place], [address], Julio Napoles MD Received: 10/26/2020 at 13:39:00 QPT : [facility], [address], [address] [place], [address], Julio Napoles MD Received: 10/26/2020 at 13:39:00 QPT : [facility], [address], [address] [place] [address], [address], Julio Napoles MD Received: 10/26/2020 at 13:39:00 QPT : [facility], [address], [address] [place] [address], [address], Julio Napoles MD Received: 10/26/2020 at 13:39:00 QPT : [facility], [address], [address] [place] [address], [address], Julio Napoles MD Received: 10/26/2020 at 13:39:00 QPT : [facility], [address], [address] [place] [address], [address], Julio Napoles MD Received: 10/26/2020 at 13:39:00 QPT : [facility], [address], [address] [place] [address], [address], Julio Napoles MD Received: 10/26/2020 at 13:39:00 QPT : [facility], [address], [address] [place] [address], [address], Julio Napoles MD Name Value Range Interpretation Code Description Data Melvina rce(s) Supporting Document(s) Glucose [Mass/volume] in Serum or Plasma 89 mg/dL 65-99 Normal (applies to non- numeric results) [facility] Fasting reference interval Urea nitrogen [Mass/volume] in Serum or Plasma 7 mg/dL 7 -20 Normal (applies to non-numeric results) [facility] Creatinine [Mass/volume] in Serum or Plasma 0.71 mg/dL 0.50 -1.00 Normal (applies to non-numeric results) [facility] eGFR NON-AFR. TRINIDADIAN 123 mL/min/1.73m2 > OR = 60 Normal (applies to non- numeric results) [facility] eGFR 143 mL/min/1.73m2 > OR = 60 Normal ( applies to non-numeric results) [facility] Urea nitrogen/Creatinine [Mass Ratio] in Serum or Plasma NOT APPLICABLE (calc) 6-22 [facility] Sodium [Moles/volume] in Serum or Plasma 137 mmol/L 135-146 Normal (applies to non-numeric results) [facility] Potassium [Moles/volume] in Serum or Plasma 3.8 mmol/L 3.8- 5.1 Normal (applies to non-numeric results) [facility] Chloride [Moles/volume] in Serum or Plasma 107 mmol/L 98-11 0 Normal (applies to non-numeric results) [facility] Carbon dioxide, total [Moles/volume] in Serum or Plasma 23 mmol/ L 20-32 Normal (applies to non-numeric results) [facility] Calcium [Mass/volume] in Serum or Plasma 9.2 mg/dL 8.9-10. 4 Normal (applies to non-numeric results) [facility] Protein [Mass/volume] in Serum or Plasma 6.8 g/dL 6.3-8.2 Normal (applies to non-numeric results) [facility] Albumin [Mass/volume] in Serum or Plasma 4.0 g/dL 3.6-5.1 Normal (applies to non-numeric results) [facility] Globulin [Mass/volume] in Serum by calculation 2.8 g/dL (calc) 2 .0-3.8 Normal (applies to non-numeric results) [facility] Albumin/Globulin [Mass Ratio] in Serum or Plasma 1.4 (calc) 1.0-2.5 Normal (applies to non-numeric results) [facility] Bilirubin.total [Mass/volume] in Serum or Plasma 0.3 mg/dL 0.2-1.1 Normal (applies to non-numeric results) [facility] Alkaline phosphatase [Enzymatic activity/volume] in Serum or Plasma 97 U/L 36-128 Normal (applies to non-numeric results) [facility] Aspartate aminotransferase [Enzymatic activity/volume] in Serum or Plasma 13 U/L 12-32 Normal (applies to non-numeric results) [facility] Alanine aminotransferase [Enzymatic activity/volume] in Seru m or Plasma 7 U/L 5-32 Normal (applies to non-numeric results) [facility] ID Date Data Source [id number] 10/29/2020 01:54:00 AM EDT [facility] FASTING:YESFASTING: YESReceived: 021 at 13:39:00 QPT: [facility], [address], [address] [place] [address], [address], Julio Napoles MD Received: 10/26/2020 at 13:39:00 QPT : [facility], [address], [address] [place] [address], [address], Julio Napoles MD Received: 10/26/2020 at 13:39:00 QPT : [facility], [address], [address] [place] [address], [address]Julio MD Received: 10/26/2020 at 13:39:00 QPT : [facility], [address], [address] [place] [address], [address]Julio MD Received: 10/26/2020 at 13:39:00 QPT : [facility], [address], [address] [place] [address], [phone] MD Received: 10/26/2020 at 13:39:00 QPT : [facility], [address], [address] [place] [address], [address]Julio MD Received: 10/26/2020 at 13:39:00 QPT : [facility], [address], [address] [place] [address], [address]Julio MD Received: 10/26/2020 at 13:39:00 QPT : [facility], [address], [address] [place] [address], [address]Julio MD Received: 10/26/2020 at 13:39:00 QPT : [facility], [address], [address] [place], [address], Julio Napoles MD Received: 10/26/2020 at 13:39:00 QPT : [facility], [address], [address] [place], [address], Julio Napoles MD Received: 10/26/2020 at 13:39:00 QPT : [facility], [address], [address] [place], [address], Julio Napoles MD Received: 10/26/2020 at 13:39:00 QPT : [facility], [address], [address] [place], [address], Julio Napoles MD Name Value Range Interpretation Code Description Data Melvina rce(s) Supporting Document(s) Color of Urine YELLOW YELLOW Normal (applies to non-numeric r esults) [facility] Appearance of Urine CLOUDY CLEAR Abnormal (applies to non-nu meric results) [facility] Specific gravity of Urine by Test strip 1.015 1.001-1. 035 Normal (applies to non-numeric results) [facility] pH of Urine by Test strip 7.0 5.0-8.0 Normal (applies to non-numeric results) [facility] Glucose [Presence] in Urine by Test strip NEGATIVE NEGATI VE Normal (applies to non-numeric results) [facility] Bilirubin.total [Presence] in Urine by Test strip NEGATIVE NEGATIVE Normal (applies to non-numeric results) [facility] Ketones [Presence] in Urine by Test strip NEGATIVE NEGATI VE Normal (applies to non-numeric results) [facility] Hemoglobin [Presence] in Urine by Test strip NEGATIVE NEG ATIVE Normal (applies to non-numeric results) [facility] Protein [Presence] in Urine by Test strip NEGATIVE NEGATI VE Normal (applies to non-numeric results) [facility] Nitrite [Presence] in Urine by Test strip NEGATIVE NEGATI VE Normal (applies to non-numeric results) [facility] Leukocyte esterase [Presence] in Urine by Test strip NEGATIVE NEGATIVE Normal (applies to non-numeric results) [facility] Leukocytes [#/area] in Urine sediment by Microscopy hi gh power field NONE SEEN /HPF < OR = 5 Normal (applies to non-numeric results) [facility] Erythrocytes [#/area] in Urine sediment by Microscopy high power field NONE SEEN /HPF < OR = 2 Normal (applies to non-numeric results) [facility] Epithelial cells.squamous [#/area] in Ur ine sediment by Microscopy high power field 0-5 /HPF < OR = 5 [facility] Bacteria [#/area] in Urine sediment by Microscopy high power field NONE SEEN /HPF NONE SEEN Normal (applies to non-numeric results) [facility] Hyaline casts [#/area] in Urine sediment by Microscopy low power field NONE SEEN /LPF NONE SEEN Normal (applies to non-numeric results) [facility] ID Date Data Source [id number] 10/29/2020 01:54:00 AM EDT [facility] FASTING:YESFASTING: YESReceived: 021 at 13:39:00 QPT: [facility], [address], [address] [place] [address], [address], Julio Napoles MD Received: 10/26/2020 at 13:39:00 QPT : [facility], [address], [address] [place] [address], [address]Julio MD Received: 10/26/2020 at 13:39:00 QPT : [facility], [address], [address] [place] [address], [address]Julio MD Received: 10/26/2020 at 13:39:00 QPT : [facility], [address], [address] [place] [address], [address]Julio MD Received: 10/26/2020 at 13:39:00 QPT : [facility], [address], [address] [place] [address], [address]Julio MD Received: 10/26/2020 at 13:39:00 QPT : [facility], [address], [address] [place] [address], [address]Julio MD Received: 10/26/2020 at 13:39:00 QPT : [facility], [address], [address] [place], [address], Julio Napoles MD Received: 10/26/2020 at 13:39:00 QPT : [facility], [address], [address] [place], [address], Julio Napoles MD Received: 10/26/2020 at 13:39:00 QPT : [facility], [address], [address] [place], [address], Julio Napoles MD Received: 10/26/2020 at 13:39:00 QPT : [facility], [address], [address] [place], [address], Julio Napoles MD Received: 10/26/2020 at 13:39:00 QPT : [facility], [address], [address] [place], [address], Julio Napoles MD Received: 10/26/2020 at 13:39:00 QPT : [facility], [address], [address] [place], [address], Julio Napoles MD Name Value Range Interpretation Code Description Data Melvina rce(s) Supporting Document(s) Calcidiol [Mass/volume] in Serum or Plasma 26 ng/mL 30-100 Belo w low normal [facility] Vitamin D Status 25-OH Vitamin D :Deficiency: <20 ng/mLInsufficiency: 20 - 29 ng/mLOptimal: > or = 30 ng/mLFor 25-OH Vitamin D testing on patients onD2-supplementation and patients for whom quantitationof D2 and D3 fractions is required, the [facility]ureD(TM)25- OH VIT D, (D2,D3), LC/MS/MS is recommended: ordercode [id number] (patients >2yrs).See Note 1Note 1For additional information, please refer tohttp://education.[employer]/faq/CXI890(This link is being provided for informational/educational purposes only.) ID Date Data Source [id number] 10/29/2020 01:54:00 AM EDT [facility] FASTING:YESFASTING: YESReceived: 021 at 13:39:00 QPT: [facility], [address], [address] [place] [address], [address], Julio Napoles MD Received: 10/26/2020 at 13:39:00 QPT : [facility], [address], [address] [place] [address], [address], Julio Napoles MD Received: 10/26/2020 at 13:39:00 QPT : [facility], [address], [address] [place] [address], [address], Julio Napoles MD Received: 10/26/2020 at 13:39:00 QPT : [facility], [address], [address] [place] [address], [address], Julio Napoles MD Received: 10/26/2020 at 13:39:00 QPT : [facility], [address], [address] [place] [address], [address], Julio Napoles MD Received: 10/26/2020 at 13:39:00 QPT : [facility], [address], [address] [place] [address], [address], Julio Napoles MD Received: 10/26/2020 at 13:39:00 QPT : [facility], [address], [address] [place] [address], [address]Julio MD Received: 10/26/2020 at 13:39:00 QPT : [facility], [address], [address] [place] [address], [address]Julio MD Received: 10/26/2020 at 13:39:00 QPT : [facility], [address], [address] [place] [address], [address]Julio MD Received: 10/26/2020 at 13:39:00 QPT : [facility], [address], [address] [place], [address], Julio Napoles MD Received: 10/26/2020 at 13:39:00 QPT : [facility], [address], [address] [place], [address]Julio MD Received: 10/26/2020 at 13:39:00 QPT : [facility], [address], [address] [place], [address], Julio Napoles MD Name Value Range Interpretation Code Description Data Melvina rce(s) Supporting Document(s) Hemoglobin A1c/Hemoglobin.total in Blood 5.7 % of total Hgb <5.7 Above high normal [facility] For someone without known diabetes, a he [id number] value between 5.7% and 6.4% is consistent withprediabetes and should be confirmed with afollow-up test.For someone with known diabetes, a value <7%indicates that their diabetes is well controlled. [id number] should be individualized based on duration ofdiabetes, age, comorbid conditions, and otherconsiderations.This assay result is consistent with an increased riskof diabetes.Currently, no consensus exists regarding use ofhemoglobin A1c for diagnosis of diabetes for children. ID Date Data Source [id number] 10/29/2020 01:54:00 AM EDT [facility] FASTING:YESFASTING: YESReceived: 021 at 13:39:00 QPT: [facility], [address], [address] [place], [address]Julio MD Received: 10/26/2020 at 13:39:00 QPT : [facility], [address], [address] [place], [address]Julio MD Received: 10/26/2020 at 13:39:00 QPT : [facility], [address], [address] [place], [address], Julio Napoles MD Received: 10/26/2020 at 13:39:00 QPT : [facility], [address], [address] [place] [address], [phone], Julio Napoles MD Received: 10/26/2020 at 13:39:00 QPT : [facility], [address], [address] [place] [address], [address], Julio Napoles MD Received: 10/26/2020 at 13:39:00 QPT : [facility], [address], [address] [place] [address], [address], Julio Napoles MD Received: 10/26/2020 at 13:39:00 QPT : [facility], [address], [address] [place] [address], [phone], Julio Napoles MD Received: 10/26/2020 at 13:39:00 QPT : [facility], [address], [address] [place] [address], [phone], Julio Napoles MD Received: 10/26/2020 at 13:39:00 QPT : [facility], [address], [address] [place] [address], [phone], Julio Napoles MD Received: 10/26/2020 at 13:39:00 QPT : [facility], [address], [address] [place] [address], [phone] MD Received: 10/26/2020 at 13:39:00 QPT : [facility], [address], [address] [place] [address], [phone] MD Received: 10/26/2020 at 13:39:00 QPT : [facility], [address], [address] [place] [address], [phone] MD Name Value Range Interpretation Code Description Data Melvina rce(s) Supporting Document(s) Bacteria identified in Urine by Culture [facility] CULTURE, URINE, ROUTINE Micro Number: [id number] Test Status: Final Specimen Source: Urine Specimen Quality: Adequate Result: No Growth Your request to have a duplicate copy faxed has been acknowledged. Queued to: [id number] ID Date Data Source [id number] 08/03/2020 05:26:00 PM EDT [facility] Name Value Range Interpretation Code Description Data Melvina rce(s) Supporting Document(s) SARS coronavirus 2 Ag Covid_negative [facility] This lab was ordered by TARUN strange nd reported by [facility]. ID Date Data Source [id number] 07/27/2020 05:57:00 PM EDT [facility] Name Value Range Interpretation Code Description Data Melvina rce(s) Supporting Document(s) SARS coronavirus 2 Ag Covid_negative [facility] This lab was ordered by TARUN starnge nd reported by [facility] [employer]. ID Date Data Source [id number] 06/29/2020 06:55:00 PM EDT [facility] Name Value Range Interpretation Code Description Data Melvina rce(s) Supporting Document(s) SARS coronavirus 2 Ag Covid_negative [facility] This lab was ordered by TARUN strange nd reported by [facility] [employer]. ID Date Data Source [id number] 06/15/2020 12:00:00 AM EDT [facility] Name Value Range Interpretation Code Description Data Melvina rce(s) Supporting Document(s) SARS coronavirus 2 Ag Covid_negative [facility] This lab was ordered by TARUN strange nd reported by [facility] [employer]. ID Date Data Source [id number] 04/12/2020 05:07:00 PM EST [facility] Name Value Range Interpretation Code Description Data Melvina rce(s) Supporting Document(s) SARS coronavirus 2 RdRp gene [Presence] in Respiratory specimen by [facility] with probe detection Not detected [facility] This lab was ordered by [facility] and reported by [facility]. ID Date Data Source [id number] 01/31/2020 09:30:00 AM EST [place] ([facility]) Name Value Range Interpretation Code Description Data Melvina rce(s) Supporting Document(s) SARS-CoV-2 (COVID-19) RNA [Presence] in Respiratory specimen by PRISCILLA with probe detection not detected not detected Sars Cov 2 RNA [facility] ([facility]) ID Date Data Source [id number] 01/31/2020 09:30:00 AM [facility] Name Value Range Interpretation Code Description Data Melvina rce(s) Supporting Document(s) SARS coronavirus 2 RNA [Presence] in Res piratory specimen by PRISCILLA with probe detection not detected not detected Sars Cov 2 RNA [place] ([facility]) ID Date Data Source [id number] 01/17/2020 09:30:00 AM EDT [facility] Name Value Range Interpretation Code Description Data Melvina rce(s) Supporting Document(s) SARS-CoV-2 (COVID-19) RNA [Presence] in Respiratory specimen by PRISCILLA with probe detection not detected not detected Sars Cov 2 RNA [facility]) ID Date Data Source [id number] 01/17/2020 09:30:00 AM EDT [facility] Name Value Range Interpretation Code Description Data Melvina rce(s) Supporting Document(s) SARS coronavirus 2 RNA [Presence] in Res piratory specimen by PR[facility]LLA with probe detection not detected not detected [facility]ars Cov 2 RNA [facility] ID Date Data Source [id number] 01/17/2020 09:30:00 AM EDT [facility] Name Value Range Interpretation Code Description Data Melvina rce(s) Supporting Document(s) SARS coronavirus 2 RNA [Presence] in Res piratory specimen by PRISCILLA with probe detection not detected not detected Sars Cov 2 RNA [facility]) ID Date Data Source [id number] 01/17/2020 09:30:00 AM EDT [facility] Name Value Range Interpretation Code Description Data Melvina rce(s) Supporting Document(s) SARS-COV-2 RNA RESP QL [facility]LLA+PROBE [employer] This lab was ordered by [facility] and reported by [employer]. ID Date Data Source Urinalysis, no micro 01/15/2020 04:30:20 AM EDT eCW1 ([facility]) Name Value Range Interpretation Code Description Data Melvina rce(s) Supporting Document(s) 1.030 Spec gravity eCW1 ([facility]) 5 pH eCW1 ([facility]) trace Leukocyte eCW1 ([facility]) neg Nitrate eCW1 ([facility]) beg Glucose eCW1 ([facility]) neg Protein eCW1 ([facility]) neg Ketones eCW1 ([facility]) neg Blood eCW1 ([facility]) neg Bilirubin eCW1 ([facility]) neg Urobili eCW1 ([facility]) yes Internal QC Acceptable (Y/N) e CW1 ([facility]) ID Date Data Source Test, Urine 01/15/2020 04:30:02 AM EDT eCW1 ([facility]) Name Value Range Interpretation Code Description Data Melvina rce(s) Supporting Document(s) Choriogonadotropin.beta subunit ( test) [Presence] in Urin e neg Test, Urine eCW1 ([facility]) yes Internal QC Acceptable (Y/N) e CW1 ([facility]) ID Date Data Source [id number] 01/03/2020 09:30:00 AM EDT [facility] In-House Lab TestsDate/Time Collect ed: January 03, 2020 9:30 AMDate/Time Received: January 03, 2020 9:30 AMComments: COVID-19 testing done in office taken from the right nostril without difficulty. Patient tolerated it well. Keya Lane MA, January 03, 2020 9:54 AMAssessment & Plan Orders:Specimen Handling [[id number]] Name Value Range Interpretation Code Description Data Melvina rce(s) Supporting Document(s) ID Date Data Source [id number] 01/03/2020 12:00:00 AM EDT [facility] Name Value Range Interpretation Code Description Data Melvina rce(s) Supporting Document(s) SARS-COV-2 RNA RESP QL [facility]+PROBE [facility] This lab was ordered by [facility] and reported by [employer]. ID Date Data Source [id number] 12/17/2019 02:15:00 PM EDT [facility] Name Value Range Interpretation Code Description Data Melvina rce(s) Supporting Document(s) SARS-COV-2 RNA RESP QL PR[facility]LLA+PROBE [facility] This lab was ordered by [facility] and reported by [facility]. Procedure Social History Code Duration Value Status Description Data Source(s ) Smoking 01/09/2021 12:00:00 AM EDT Never Smoker completed Never S moker eCW1 ([facility]) Smoking 01/09/2021 12:00:00 AM EDT Never Smoker completed Never S moker eCW1 ([facility]) Smoking 11/17/2020 12:00:00 AM EDT Never Smoker completed Never S moker eCW1 ([facility]) Smoking 11/17/2020 12:00:00 AM EDT Never Smoker completed Never S moker eCW1 ([facility]) Smoking 11/17/2020 12:00:00 AM EDT Never Smoker completed Never S moker eCW1 ([facility]) Smoking 11/03/2020 12:00:00 AM EDT Never Smoker completed Never S moker eCW1 ([facility]) Smoking 11/03/2020 12:00:00 AM EDT Never Smoker completed Never S moker eCW1 ([facility]) Smoking 10/25/2020 12:00:00 AM EDT Never Smoker completed Never S moker eCW1 ([facility]) Smoking 10/20/2020 12:00:00 AM EDT Never Smoker completed Never S moker eCW1 ([facility]) Smoking 10/06/2020 12:00:00 AM EDT Never Smoker completed Never S moker eCW1 ([facility]) Smoking 09/21/2020 12:00:00 AM EDT Never Smoker completed Never S moker eCW1 ([facility]) Smoking 08/18/2020 12:00:00 AM EDT Never Smoker completed Never S moker eCW1 ([facility]) Smoking 08/18/2020 12:00:00 AM EDT Never Smoker completed Never S moker eCW1 ([facility]) Smoking 07/26/2020 12:00:00 AM EDT Never Smoker completed Never S moker eCW1 ([facility]) Smoking 07/26/2020 12:00:00 AM EDT Never Smoker completed Never S moker eCW1 ([facility]) Smoking 07/26/2020 12:00:00 AM EDT Never Smoker completed Never S moker eCW1 ([facility]) Smoking 07/21/2020 12:00:00 AM EDT Never Smoker completed Never S moker eCW1 ([facility]) Smoking 06/09/2020 12:00:00 AM EDT Never Smoker completed Never S moker eCW1 ([facility]) Smoking 06/09/2020 12:00:00 AM EDT Never Smoker completed Never S moker eCW1 ([facility]) Smoking 06/09/2020 12:00:00 AM EDT Never Smoker completed Never S moker eCW1 ([facility]) Smoking 03/28/2020 12:00:00 AM EST Never Smoker completed Never S moker eCW1 ([facility]) Smoking 03/28/2020 12:00:00 AM EST Never Smoker completed Never S moker eCW1 ([facility]) Smoking 03/28/2020 12:00:00 AM EST Never Smoker completed Never S moker eCW1 ([facility]) Smoking 03/28/2020 12:00:00 AM EST Never Smoker completed Never S moker eCW1 ([facility]) Smoking 03/28/2020 12:00:00 AM EST Never Smoker completed Never S moker eCW1 ([facility]) Smoking 01/14/2020 12:00:00 AM EDT Never Smoker completed Never S moker eCW1 ([facility]) Smoking 01/14/2020 12:00:00 AM EDT Never Smoker completed Never S moker eCW1 ([facility]) Smoking 01/14/2020 12:00:00 AM EDT Never Smoker completed Never S moker eCW1 ([facility]) Smoking 01/14/2020 12:00:00 AM EDT Never Smoker completed Never S moker eCW1 ([facility]) Smoking 01/14/2020 12:00:00 AM EDT Never Smoker completed Never S moker eCW1 ([facility]) Smoking 01/14/2020 12:00:00 AM EDT Never Smoker completed Never S moker eCW1 ([facility]) Vital Signs ID Date Data Source UNK Name Value Range Interpretation Code Description Data Source(s) Diastolic blood pressure 81 mm[Hg] 81 mm[Hg] MEDENT ([facility], [facility]) Heart rate 80 /min 80 /min MEDENT ([facility], [facility]) Respiratory rate 16 /min 16 /min MEDENT ( [facility]) Oxygen saturation in Arterial blood by Pulse oximetry 100 % 100 % MEDENT ([facility]) Systolic blood pressure 120 mm[Hg] 120 mm[Hg] M EDENT ([facility], [facility]) Body temperature 98.7 [degF] 98.7 [degF] MEDENT ([facility], [facility]) Body weight 216.00 [lb_av] 216.00 [lb_av] MEDEN T ([facility], [facility]) Body height 50 [in_i] 50 [in_i] MEDENT ([facility], [facility]) 4'2" Body mass index (BMI) [Ratio] 60.7 kg/m2 60.7 k g/m2 MEDENT ([facility], [facility]) Body weight 215 [lb_av] 215 [lb_av] eCW1 ([facility]) Body height [in_i] eCW1 ([facility]) Body mass index (BMI) [Ratio] 41.98 kg/m2 41.98 kg/m2 eCW1 ([facility]) Heart rate 79 /min 79 /min eCW1 ([facility]) Respiratory rate 18 /min 18 /min eCW1 ([facility]) Body temperature 97.3 [degF] 97.3 [degF] eCW1 ( [facility]) Systolic blood pressure 112 mm[Hg] 112 mm[Hg] e CW1 ([facility]) Diastolic blood pressure 70 mm[Hg] 70 mm[Hg] eCW1 ([facility]) Body weight 216 [lb_av] 216 [lb_av] eCW1 ([facility]) Body height [in_i] eCW1 ([facility]) Body mass index (BMI) [Ratio] 42.18 kg/m2 42.18 kg/m2 eCW1 ([facility]) Heart rate 80 /min 80 /min eCW1 ([facility]) Respiratory rate 18 /min 18 /min eCW1 ([facility]) Body temperature 97.2 [degF] 97.2 [degF] eCW1 ( [facility]) Systolic blood pressure 110 mm[Hg] 110 mm[Hg] e CW1 ([facility]) Diastolic blood pressure 70 mm[Hg] 70 mm[Hg] eCW1 ([facility]) Body weight 215 [lb_av] 215 [lb_av] eCW1 ([facility]) Body height [in_i] eCW1 ([facility]) Body mass index (BMI) [Ratio] 41.98 kg/m2 41.98 kg/m2 eCW1 ([facility]) Heart rate 80 /min 80 /min eCW1 ([facility]) Respiratory rate 18 /min 18 /min eCW1 ([facility]) Body temperature 97 [degF] 97 [degF] eCW1 ([facility]) Systolic blood pressure 110 mm[Hg] 110 mm[Hg] e CW1 ([facility]) Diastolic blood pressure 70 mm[Hg] 70 mm[Hg] eCW1 ([facility]) Body weight 203 [lb_av] 203 [lb_av] eCW1 ([facility]) Body height [in_i] eCW1 ([facility]) Body mass index (BMI) [Ratio] 39.64 kg/m2 39.64 kg/m2 eCW1 ([facility]) Heart rate 88 /min 88 /min eCW1 ([facility]) Respiratory rate 16 /min 16 /min eCW1 ([facility]) Body temperature 97.3 [degF] 97.3 [degF] eCW1 ( [facility]) Body weight 203 [lb_av] 203 [lb_av] eCW1 ([facility]) Body height [in_i] eCW1 ([facility]) Body mass index (BMI) [Ratio] 39.64 kg/m2 39.64 kg/m2 W1 ([facility]) Heart rate 88 /min 88 /min eCW1 ([facility]) Respiratory rate 20 /min 20 /min eCW1 ([facility]) Body temperature 98.7 [degF] 98.7 [degF] eCW1 ( [facility]) Systolic blood pressure 110 mm[Hg] 110 mm[Hg] e CW1 ([facility]) Diastolic blood pressure 70 mm[Hg] 70 mm[Hg] eCW1 ([facility]) Body weight 196 [lb_av] 196 [lb_av] eCW1 ([facility]) Body height [in_i] eCW1 ([facility]) Body mass index (BMI) [Ratio] 38.27 kg/m2 38.27 kg/m2 eCW1 ([facility]) Heart rate 80 /min 80 /min eCW1 ([facility]) Respiratory rate 18 /min 18 /min eCW1 ([facility]) Body temperature 97.5 [degF] 97.5 [degF] eCW1 ( [facility]) Systolic blood pressure 110 mm[Hg] 110 mm[Hg] e CW1 ([facility]) Diastolic blood pressure 70 mm[Hg] 70 mm[Hg] eCW1 ([facility]) Patient Treatment Plan of Care Planned Activity Planned Date Details Description Data Source (s) Vitamin D-3 25 MCG (1000 UT) 03/28/2020 12:00:00 AM EST eCW1 ([facility]) Vitamin D-3 25 MCG (1000 UT) 03/28/2020 12:00:00 AM EST eCW1 ([facility]) Vitamin D-3 25 MCG (1000 UT) 03/28/2020 12:00:00 AM EST eCW1 ([facility]) Vitamin D-3 25 MCG (1000 UT) 03/28/2020 12:00:00 AM EST eCW1 ([facility]) Vitamin D-3 25 MCG (1000 UT) 03/28/2020 12:00:00 AM EST eCW1 ([facility]) Vitamin D-3 25 MCG (1000 UT) 03/28/2020 12:00:00 AM EST eCW1 ([facility]) Vitamin D-3 25 MCG (1000 UT) 03/28/2020 12:00:00 AM EST eCW1 ([facility]) Vitamin D-3 25 MCG (1000 UT) 03/28/2020 12:00:00 AM EST eCW1 ([facility]) Vitamin D-3 25 MCG (1000 UT) 03/28/2020 12:00:00 AM EST eCW1 ([facility]) Vitamin D-3 25 MCG (1000 UT) 03/28/2020 12:00:00 AM EST eCW1 ([facility]) Vitamin D-3 25 MCG (1000 UT) 03/28/2020 12:00:00 AM EST eCW1 ([facility]) Vitamin D-3 25 MCG (1000 UT) 03/28/2020 12:00:00 AM EST eCW1 ([facility]) Vitamin D-3 25 MCG (1000 UT) 03/28/2020 12:00:00 AM EST eCW1 ([facility]) Vitamin D-3 25 MCG (1000 UT) 03/28/2020 12:00:00 AM EST eCW1 ([facility]) Vitamin D-3 25 MCG (1000 UT) 03/28/2020 12:00:00 AM EST eCW1 ([facility])
[2021-01-29] MEDS ORDERED: BENZONATATE 100MG CAPSULE PO ONE (22:35)
[2021-01-29] MEDS ORDERED: IBUPROFEN 600MG TAB PO ONE (22:35)
--- OUTSIDE RECORDS SUMMARY | 2021-01-29 22:56 | CCD ---
Author Author [facility] Organization [facility] Address Unknown Phone Unavailable Care Team Providers Care Manager Lean Name Role Phone Alvarado, Carla DIRECTOR STARS Unavailable Unavailable Alvarado, Carla DIRECTOR STARS Unavailable Unavailable Alvarado, Carla DIRECTOR STARS Unavailable Unavailable Alvarado, Carla DIRECTOR STARS Unavailable Unavailable Alvarado, Carla DIRECTOR STARS Unavailable Unavailable Alvarado, Carla DIRECTOR STARS Unavailable Unavailable Alvarado, Carla DIRECTOR STARS Unavailable Unavailable Alvarado, Carla DIRECTOR STARS Unavailable Unavailable Alvarado, Carla DIRECTOR STARS Unavailable Unavailable Alvarado, Caral DIRECTOR STARS Unavailable Unavailable Alvarado, Carla DIRECTOR STARS Unavailable Unavailable Alvarado, Carla DIRECTOR STARS Unavailable Unavailable Alvarado, Carla DIRECTOR STARS Unavailable Unavailable Cristofer Jaime MD Unavailable Unavailable [...] Unavailable Cristofer Jaime MD Unavailable Unavailable Cristofer Jamie MD Unavailable Unavailable Cristofer Jaime MD Unavailable [...] Cristofer Aleman MD Unavailable Unavailable Jaime, Cristofer Aleamn MD Unavailable Unavailable Jaime, Cristofer Aleman MD [...] MD Unavailable Unavailable JaimeCristofer MD Unavailable Unavailable Cristofer Jaime MD Unavailable [...] Unavailable Cristofer Jaime MD Unavailable Unavailable Cristofer Jamie MD Unavailable Unavailable Cristofer Jaime MD Unavailable [...] Unavailable Cristofer Jaime MD Unavailable Unavailable Jaime, D Ash MD Unavailable Unavailable Ajime, D Ash MD Unavailable Unavailable Jaime, D [...] is protected by Article 27-F of the [facility] Public Health law. If you continue you may have access to information: Regarding HIV / AIDS; Provided by facilities licensed or operated by the [facility] Office of Mental Health; or Provided by the [facility] Office for People With Developmental Disabilities. If such information is present, then the following [place] mandated warning applies: This information has been [...] law may result in a fine or intermediate sentence or both. A general authorization for the release of medical or other information is NOT sufficient authorization for further disc losure. Allergies and Adverse Reactions Type Description Substance Reaction Status Data Source(s ) Allergy to substance Allergy to substance Allergy to substance KO[facility] ([facility]) Allergy to substance Allergy to substance Allergy to substance [facility] ([facility]) Allergy to substance Allergy to substance Allergy to substance [facility] ([facility]) Family History Family Member Name Family Member Gender Family Member Status Date o f Status Description Data Source(s) Unknown Male Problem [facility] ([facility]) Encounters Encounter Providers Location Date Indications Data Source(s ) Outpatient Attender: Carla carrasquillo 01/26/2021 11:50:00 AM EDT MEDENT ([facility]) Outpatient [address] [facility] [id number] 01/12/2021 12:00:00 AM EDT eCW1 ([facility]) Unknown [address] [facility] [place] [id number] 01/08/2021 12:00:00 AM EDT eCW1 ([facility]) Outpatient [address] [facility] [id number] 12/29/2020 12:00:00 AM EDT eCW1 ([facility]) Outpatient [address] [facility] [address] [id number] 12/01/2020 12:00:00 AM EDT eCW1 ([facility]) Outpatient [address] [facility] Y [id number] 11/17/2020 12:00:00 AM EDT eCW1 ([facility]) Outpatient [address] [facility] [id number] 11/03/2020 12:00:00 AM EDT eCW1 ([facility]) [place] [address] [facility] [place] [address] 11/03/2020 12:00:00 AM EDT eCW1 ([facility]) [place] [address] [facility] [place] [address] 10/25/2020 12:00:00 AM EDT eCW1 ([facility]) [place] [address] [facility] [place] [address] 10/20/2020 12:00:00 AM EDT eCW1 ([facility]) [place] [address] [facility] [place] [address] 10/06/2020 12:00:00 AM EDT eCW1 ([facility]) [place] [address] [facility] [place] [address] 09/21/2020 12:00:00 AM EDT eCW1 ([facility]) [place] [address] [facility] [place] [address] 09/01/2020 12:00:00 AM EDT eCW1 ([facility]) [place] [address] [facility] [place] [address] 08/18/2020 12:00:00 AM EDT eCW1 ([facility]) [place] [address] [facility] [place] [address] 08/04/2020 12:00:00 AM EDT eCW1 ([facility]) [place] [address] [facility] [place] [address] 07/28/2020 12:00:00 AM EDT eCW1 ([facility]) [place] [address] [facility] [place] [address] 07/26/2020 12:00:00 AM EDT eCW1 ([facility]) [place] [address] [facility] [place] [address] 07/21/2020 12:00:00 AM EDT [facility]1 [facility] [place] [address] [facility] [place] [address] 07/10/2020 12:00:00 AM EDT [facility]CW1 [facility] [place] [address] [facility] [place] [address] 06/28/2020 12:00:00 AM EDT eCW1 ([facility]) [place] [address] [facility] [place] [address] 06/09/2020 12:00:00 AM EDT eCW1 ([facility]) Outpatient [address] [facility] [place] [id number] 05/26/2020 12:00:00 AM EST eCW1 ([facility]) Outpatient [address] [facility] [place] [id number] 05/12/2020 12:00:00 AM EST eCW1 ([facility]) Outpatient [address] [facility] [place] [address] 04/28/2020 12:00:00 AM EST eCW1 ([facility]) Ash Jaime MD: [address] [place] [address] [address], [place] [address], Ph. Attender: Ash Jaime MD AL - [facility] Medical 04/12/2020 12:00:00 AM EST [place] ([facility]) [place] [address] [facility] [address] 04/11/2020 12:00:00 AM EST eCW1 ([facility]) Outpatient [address] [facility] [place] [id number] 03/28/2020 12:00:00 AM EST eCW1 ([facility]) Outpatient [address] [facility] [place] [id number] 03/23/2020 12:00:00 AM EST eCW1 ([facility]) Outpatient [address] [facility] [place] [id number] 03/10/2020 12:00:00 AM EST eCW1 ([facility]) [place] [address] [facility] [place] [address] 02/25/2020 12:00:00 AM EST eCW1 ([facility]) [place] [address] [facility] [place] [address] 02/11/2020 12:00:00 AM EST eCW1 ([facility]) Raji Camara RPA-C: [address], [place] [address], Ph. Attender: RAJI TORRES [facility] Medical 01/31/2020 12:00:00 AM EST KO[facility] ([facility]) Raji Camara RPA-C: [address], [place] [address], Ph. Attender: RAJI LOBOC [facility] Medical 01/31/2020 12:00:00 AM EST KO[facility] ([facility]) Rjai Camara RPA-C: [address], [place] [address], Ph. Attender: RAJI TORRES [facility] Medical 01/31/2020 12:00:00 AM EST KO[facility] ([facility]) Raji Camara RPA-C: [address], [place] [address], Ph. Attender: RAJI LOBOC [facility] Medical 01/17/2020 12:00:00 AM EDT KOBE ([facility]) Raji Camara RPA-C: [address], [place] [address], Ph. Attender: RAJI TORRES [facility] Medical 01/17/2020 12:00:00 AM EDT KOBE ([facility]) BRIAN Welch: [address], [place] [address], Ph. Attender: RAJI TORRES [facility] Medical 01/17/2020 12:00:00 AM EDT [facility] ([facility]) [place] [address] [facility] [place] [address] 01/14/2020 12:00:00 AM EDT eCW1 ([facility]) Outpatient Attender: Ash Jaime MD CT 01/04/2020 02:56:04 PM EDT [facility] Out[place] [address] [facility] [place] [address] 12/31/2019 12:00:00 AM EDT eCW1 ([facility]) Outpatient Attender: Ash Jaime MD CT 12/17/2019 05:07:01 PM EDT [facility] Outpatient Attender: Ash Jaime MD CT 12/17/2019 10:22:02 AM EDT [facility] Outpatient Attender: Ash Jaime MD CT 12/17/2019 10:21:00 AM EDT [facility] Immunizations Vaccine Date Status Description Data Source(s) influenza, recombinant, quadrIvalent,injectable, prese rvative free 01/12/2021 03:08:00 PM EDT completed eCW1 ([facility]) COVID-19 dose #1 given elsewhere Unspecified 10/25/2020 11:2 9:00 AM EDT completed eCW1 ([facility]) COVID-19 dose #2 given elsewhere Unspecified 10/25/2020 11:2 9:00 AM EDT completed eCW1 ([facility]) COVID-19 dose #1 given elsewhere Unspecified 10/25/2020 11:2 9:00 AM EDT completed eCW1 ([facility]) COVID-19 dose #2 given elsewhere Unspecified 10/25/2020 11:2 9:00 AM EDT completed eCW1 ([facility]) COVID-19 dose #1 given elsewhere Unspecified 10/25/2020 11:2 9:00 AM EDT completed eCW1 ([facility]) COVID-19 dose #2 given elsewhere Unspecified 10/25/2020 11:2 9:00 AM EDT completed eCW1 ([facility]) COVID-19 dose #1 given elsewhere Unspecified 10/25/2020 11:2 9:00 AM EDT completed eCW1 ([facility]) COVID-19 dose #2 given elsewhere Unspecified 10/25/2020 11:2 9:00 AM EDT completed eCW1 ([facility]) COVID-19 dose #1 given elsewhere Unspecified 10/25/2020 11:2 9:00 AM EDT completed eCW1 ([facility]) COVID-19 dose #2 given elsewhere Unspecified 10/25/2020 11:2 9:00 AM EDT completed eCW1 ([facility]) COVID-19 dose #1 given elsewhere Unspecified 10/25/2020 11:2 9:00 AM EDT completed eCW1 ([facility]) COVID-19 dose #2 given elsewhere Unspecified 10/25/2020 11:2 9:00 AM EDT completed eCW1 ([facility]) COVID-19 dose #1 given elsewhere Unspecified 10/25/2020 11:2 9:00 AM EDT completed eCW1 ([facility]) COVID-19 dose #2 given elsewhere Unspecified 10/25/2020 11:2 9:00 AM EDT completed eCW1 ([facility]) COVID-19 dose #1 given elsewhere Unspecified 10/25/2020 11:2 9:00 AM EDT completed eCW1 ([facility]) COVID-19 dose #2 given elsewhere Unspecified 10/25/2020 11:2 9:00 AM EDT completed eCW1 ([facility]) COVID-19 VACCINE Pfizer 09/09/2020 12:00:00 AM EDT completed [facility] Vaccine Series Complete: YESThis Data wa s Submitted to [facility]. COVID-19 VACC, MRNA(PFIZER)/PF 09/09/2020 12:00:00 AM EDT completed [facility] COVID-19 VACC, MRNA(PFIZER)/PF 08/19/2020 12:00:00 AM EDT completed [facility] COVID-19 VACCINE Pfizer 08/19/2020 12:00:00 AM EDT completed [facility] Vaccine Series Complete: NOThis Data was Submitted to [facility]. influenza, recombinant, quadrIvalent,injectable, prese rvative free 03/28/2020 01:54:00 PM EST completed eCW1 ([facility]) influenza, recombinant, quadrIvalent,injectable, prese rvative free 03/28/2020 01:54:00 PM EST completed eCW1 ([facility]) influenza, recombinant, quadrIvalent,injectable, prese rvative free 03/28/2020 01:54:00 PM EST completed eCW1 ([facility]) influenza, recombinant, quadrIvalent,injectable, prese rvative free 03/28/2020 01:54:00 PM EST completed eCW1 ([facility]) influenza, recombinant, quadrIvalent,injectable, prese rvative free 03/28/2020 01:54:00 PM EST completed eCW1 ([facility]) influenza, recombinant, quadrIvalent,injectable, prese rvative free 03/28/2020 01:54:00 PM EST completed eCW1 ([facility]) influenza, recombinant, quadrIvalent,injectable, prese rvative free 03/28/2020 01:54:00 PM EST completed eCW1 ([facility]) influenza, recombinant, quadrIvalent,injectable, prese rvative free 03/28/2020 01:54:00 PM EST completed eCW1 ([facility]) influenza, recombinant, quadrIvalent,injectable, prese rvative free 03/28/2020 01:54:00 PM EST completed eCW1 ([facility]) influenza, recombinant, quadrIvalent,injectable, prese rvative free 03/28/2020 01:54:00 PM EST completed eCW1 ([facility]) influenza, recombinant, quadrIvalent,injectable, prese rvative free 03/28/2020 01:54:00 PM EST completed eCW1 ([facility]) influenza, recombinant, quadrIvalent,injectable, prese rvative free 03/28/2020 01:54:00 PM EST completed eCW1 ([facility]) influenza, recombinant, quadrIvalent,injectable, prese rvative free 03/28/2020 01:54:00 PM EST completed eCW1 ([facility]) influenza, recombinant, quadrIvalent,injectable, prese rvative free 03/28/2020 01:54:00 PM EST completed eCW1 ([facility]) influenza, recombinant, quadrIvalent,injectable, prese rvative free 03/28/2020 01:54:00 PM EST completed eCW1 ([facility]) influenza, recombinant, quadrIvalent,injectable, prese rvative free 03/28/2020 01:54:00 PM EST completed eCW1 ([facility]) influenza, recombinant, quadrIvalent,injectable, prese rvative free 03/28/2020 01:54:00 PM EST completed eCW1 ([facility]) influenza, recombinant, quadrIvalent,injectable, prese rvative free 03/28/2020 01:54:00 PM EST completed eCW1 ([facility]) influenza, recombinant, quadrIvalent,injectable, prese rvative free 03/28/2020 01:54:00 PM EST completed eCW1 ([facility]) influenza, recombinant, quadrIvalent,injectable, prese rvative free 03/28/2020 01:54:00 PM EST completed eCW1 ([facility]) influenza, recombinant, quadrIvalent,injectable, prese rvative free 03/28/2020 01:54:00 PM EST completed eCW1 ([facility]) influenza, recombinant, quadrIvalent,injectable, prese rvative free 03/28/2020 01:54:00 PM EST completed eCW1 ([facility]) influenza, recombinant, quadrIvalent,injectable, prese rvative free 03/28/2020 01:54:00 PM EST completed eCW1 ([facility]) influenza, recombinant, quadrIvalent,injectable, prese rvative free 03/28/2020 01:54:00 PM EST completed eCW1 ([facility]) influenza, recombinant, quadrIvalent,injectable, prese rvative free 03/28/2020 01:54:00 PM EST completed eCW1 ([facility]) INFLUENZA VIRUS VACCINE QUADRIVALENT (6 MOS AN [...] BY MOUTH ONCE A DAY SOLD: 04/03/2020 [facility] 25 mcg (1,000 unit) 03/29/2020 12:00:00 AM EST capsule 30 TAKE 1 CAPSULE BY MOUTH ONCE A DAY TAKE 1 CAPSULE BY MOUTH ONCE A DAY SOLD: 06/28/2020 [facility] Vitamin D-3 25 MCG (1000 UT) Vitamin D-3 25 MCG (1000 UT) 12:00:00 AM EST 1.0 {capsule} active Vitamin D- 3 25 MCG (1000 UT) eCW1 ([facility]) Vitamin D-3 25 MCG (1000 UT) Vitamin D-3 25 MCG (1000 UT) 12:00:00 AM EST 1.0 {capsule} active Vitamin D- 3 25 MCG (1000 UT) eCW1 ([facility]) Vitamin D-3 25 MCG (1000 UT) Vitamin D-3 25 MCG (1000 UT) 12:00:00 AM EST 1.0 {capsule} active Vitamin D- 3 25 MCG (1000 UT) eCW1 ([facility]) Vitamin D-3 25 MCG (1000 UT) Vitamin D-3 25 MCG (1000 UT) 12:00:00 AM EST 1.0 {capsule} active Vitamin D- 3 25 MCG (1000 UT) eCW1 ([facility]) Vitamin D-3 25 MCG (1000 UT) Vitamin D-3 25 MCG (1000 UT) 12:00:00 AM EST 1.0 {capsule} active Vitamin D- 3 25 MCG (1000 UT) eCW1 ([facility]) Vitamin D-3 25 MCG (1000 UT) Vitamin D-3 25 MCG (1000 UT) 12:00:00 AM EST 1.0 {capsule} active Vitamin D- 3 25 MCG (1000 UT) eCW1 ([facility]) Vitamin D-3 25 MCG (1000 UT) Vitamin D-3 25 MCG (1000 UT) 12:00:00 AM EST 1.0 {capsule} active Vitamin D- 3 25 MCG (1000 UT) eCW1 ([facility]) 50 mg 03/28/2020 12:00:00 AM EST tablet 30 TAKE ONE TABLET BY MOUTH EVERY DAY TAKE ONE TABLET BY MOUTH EVERY DAY SOLD: 05/17/2020 [facility] Vitamin D-3 25 MCG (1000 UT) Vitamin D-3 25 MCG (1000 UT) 12:00:00 AM EST 1.0 {capsule} active Vitamin D- 3 25 MCG (1000 UT) eCW1 ([facility]) Vitamin D-3 25 MCG (1000 UT) Vitamin D-3 25 MCG (1000 UT) 12:00:00 AM EST 1.0 {capsule} active Vitamin D- 3 25 MCG (1000 UT) eCW1 ([facility]) Vitamin D-3 25 MCG (1000 UT) Vitamin D-3 25 MCG (1000 UT) 12:00:00 AM EST 1.0 {capsule} active Vitamin D- 3 25 MCG (1000 UT) W ([facility]) Vitamin D-3 25 MCG (1000 UT) Vitamin D-3 25 MCG (1000 UT) 12:00:00 AM EST 1.0 {capsule} active Vitamin D- 3 25 MCG (1000 UT) eCW ([facility]) Vitamin D-3 25 MCG (1000 UT) Vitamin D-3 25 MCG (1000 UT) 12:00:00 AM EST 1.0 {capsule} active Vitamin D- 3 25 MCG (1000 UT) W ([facility]) 50 mg 03/28/2020 12:00:00 AM EST tablet 30 TAKE ONE TABLET BY MOUTH EVERY DAY TAKE ONE TABLET BY MOUTH EVERY DAY SOLD: 04/03/2020 [facility] Vitamin D-3 25 MCG (1000 UT) Vitamin D-3 25 MCG (1000 UT) 12:00:00 AM EST 1.0 {capsule} active Vitamin D- 3 25 MCG (1000 UT) eCW1 ([facility]) Vitamin D-3 25 MCG (1000 UT) Vitamin D-3 25 MCG (1000 UT) 12:00:00 AM EST 1.0 {capsule} active Vitamin D- 3 25 MCG (1000 UT) eCW1 ([facility]) Vitamin D-3 25 MCG (1000 UT) Vitamin D-3 25 MCG (1000 UT) 12:00:00 AM EST 1.0 {capsule} active Vitamin D- 3 25 MCG (1000 UT) eCW1 ([facility]) Vitamin D-3 25 MCG (1000 UT) Vitamin D-3 25 MCG (1000 UT) 12:00:00 AM EST 1.0 {capsule} active Vitamin D- 3 25 MCG (1000 UT) eCW1 ([facility]) Vitamin D-3 25 MCG (1000 UT) Vitamin D-3 25 MCG (1000 UT) 12:00:00 AM EST 1.0 {capsule} active Vitamin D- 3 25 MCG (1000 UT) eCW1 ([facility]) Vitamin D-3 25 MCG (1000 UT) Vitamin D-3 25 MCG (1000 UT) 12:00:00 AM EST 1.0 {capsule} active Vitamin D- 3 25 MCG (1000 UT) eCW1 ([facility]) Vitamin D-3 25 MCG (1000 UT) Vitamin D-3 25 MCG (1000 UT) 12:00:00 AM EST 1.0 {capsule} active Vitamin D- 3 25 MCG (1000 UT) eCW1 ([facility]) Vitamin D-3 25 MCG (1000 UT) Vitamin D-3 25 MCG (1000 UT) 12:00:00 AM EST 1.0 {capsule} active Vitamin D- 3 25 MCG (1000 UT) eCW1 ([facility]) 50 mg 03/28/2020 12:00:00 AM EST tablet 30 TAKE ONE TABLET BY MOUTH EVERY DAY TAKE ONE TABLET BY MOUTH EVERY DAY SOLD: 06/28/2020 [facility] Vitamin D-3 25 MCG (1000 UT) Vitamin D-3 25 MCG (1000 UT) 12:00:00 AM EST 1.0 {capsule} active Vitamin D- 3 25 MCG (1000 UT) eCW1 ([facility]) Vitamin D-3 25 MCG (1000 UT) Vitamin D-3 25 MCG (1000 UT) 12:00:00 AM EST 1.0 {capsule} active Vitamin D- 3 25 MCG (1000 UT) eCW1 ([facility]) Vitamin D-3 25 MCG (1000 UT) Vitamin D-3 25 MCG (1000 UT) 12:00:00 AM EST 1.0 {capsule} active Vitamin D- 3 25 MCG (1000 UT) eCW1 ([facility]) Vitamin D-3 25 MCG (1000 UT) Vitamin D-3 25 MCG (1000 UT) 12:00:00 AM EST 1.0 {capsule} active Vitamin D- 3 25 MCG (1000 UT) eCW1 ([facility]) Vitamin D-3 25 MCG (1000 UT) Vitamin D-3 25 MCG (1000 UT) 12:00:00 AM EST 1.0 {capsule} active Vitamin D- 3 25 MCG (1000 UT) eCW1 ([facility]) 25 mg 02/07/2020 12:00:00 AM EST tablet 10 TAKE ONE TABLET BY MOUTH EVERY DAY TAKE ONE TABLET BY MOUTH EVERY DAY SOLD: 02/09/2020 [facility] 25 mg 01/11/2020 12:00:00 AM EDT tablet 30 TAKE ONE TABLET BY MOUTH EVERY DAY TAKE ONE TABLET BY MOUTH EVERY DAY SOLD: 01/12/2020 [facility] Insurance Providers Payer name Policy type / Coverage type Policy ID Covered republican ID Covered republican's relationship to nixon Policy Nixon Plan Information Foreign Serv[employer] Plan [employer] [id number] [facility] [employer] Plan Commercial [id number] Family Dependent [id number] [employer] [facility] [place] [id number] FA2 [id number] FOREIGN SERVICE BENEFIT PLAN [id number] FA2 [id number] FOREIGN SERVICE BENEFIT PLAN [id number] FA2 [id number] [employer] SERVICES BENIFIT P [id number] C [id number] P UNAVAILABLE UNAVAILA BLE [employer]ET[employer] [id number] FA2 [id number] [employer] [place] [id number] SP [id number] Problems, Conditions, and Diagnoses Code Display Name Description Problem Type Effective Dates Data Source(s) Z23 [id number] Encounter for immunization Problem 12:00:00 AM EDT eCW1 ([facility]) N39.46 298165016 Mixed stress and urge urinary incontinenc e Problem 10/25/2020 12:00:00 AM EDT eCW1 ([facility]) E66.01 [id number] Morbid (severe) obesity due to excess nicolas ories Problem 10/25/2020 12:00:00 AM EDT eCW1 ([facility]) Z68.41 [id number] Body mass index (BMI) of 40.1 to 44.9 in adult Problem 07/26/2020 12:00:00 AM EDT eCW1 ([facility]) E66.01 [id number] Morbid obesity due to excess calories Pro blem 07/26/2020 12:00:00 AM EDT eCW1 ([facility]) V01.79 Contact with and (suspected) exposure to other viral communicable diseases Contact with and (suspected) exposure to other viral communicable diseases 12/17/2019 10:20:47 AM EDT [facility] Surgeries/Procedures Procedure Description Date Indications Data Source(s) OFFICE OUTPATIENT NEW 30 MINUTES 01/26/2021 12:00:00 A M EDT MEDENT ([facility]) Imm: Flublok Quadrivalent 18 years & older 0.5mL IM Influenz a 01/12/2021 12:00:00 AM EDT eCW1 ([facility]) PROF SVCS ALLG IMMNTX X W/PRV ALLGIC XTRCS NJXS 2020 12:00:00 AM EDT eCW1 ([facility]) PROF SVCS ALLG IMMNTX X W/PRV ALLGIC XTRCS NJXS 2020 12:00:00 AM EDT eCW1 ([facility]) PROF SVCS ALLG IMMNTX X W/PRV ALLGIC XTRCS NJXS 2020 12:00:00 AM EDT eCW1 ([facility]) PROF SVCS ALLG IMMNTX X W/PRV ALLGIC XTRCS NJXS 2020 12:00:00 AM EDT eCW1 ([facility]) PROF SVCS ALLG IMMNTX X W/PRV ALLGIC XTRCS NJXS 2020 12:00:00 AM EDT eCW1 ([facility]) PROF SVCS ALLG IMMNTX X W/PRV ALLGIC XTRCS NJXS 2020 12:00:00 AM EDT eCW1 ([facility]) PROF SVCS ALLG IMMNTX X W/PRV ALLGIC XTRCS NJXS 2020 12:00:00 AM EDT eCW1 ([facility]) PROF SVCS ALLG IMMNTX X W/PRV ALLGIC XTRCS NJXS 2020 12:00:00 AM EDT eCW1 ([facility]) PROF SVCS ALLG IMMNTX X W/PRV ALLGIC XTRCS NJXS 2020 12:00:00 AM EDT eCW1 ([facility]) PROF SVCS ALLG IMMNTX X W/PRV ALLGIC XTRCS NJXS 2020 12:00:00 AM EDT eCW1 ([facility]) PROF SVCS ALLG IMMNTX X W/PRV ALLGIC XTRCS NJXS 2020 12:00:00 AM EDT eCW1 ([facility]) PROF SVCS ALLG IMMNTX X W/PRV ALLGIC XTRCS NJXS 2020 12:00:00 AM EDT eCW1 ([facility]) PROF SVCS ALLG IMMNTX X W/PRV ALLGIC XTRCS NJXS 2020 12:00:00 AM EDT eCW1 ([facility]) PROF SVCS ALLG IMMNTX X W/PRV ALLGIC XTRCS NJXS 2020 12:00:00 AM EDT eCW1 ([facility]) PROF SVCS ALLG IMMNTX X W/PRV ALLGIC XTRCS NJXS 2020 12:00:00 AM EST eCW1 ([facility]) PROF SVCS ALLG IMMNTX X W/PRV ALLGIC XTRCS NJXS 2020 12:00:00 AM EST eCW1 ([facility]) PROF SVCS ALLG IMMNTX X W/PRV ALLGIC XTRCS NJXS 2020 12:00:00 AM EST eCW1 ([facility]) PROF SVCS ALLG IMMNTX X W/PRV ALLGIC XTRCS NJXS 2020 12:00:00 AM EST eCW1 [facility] [place]) PROF SVCS ALLG IMMNTX X W/PRV ALLGIC XTRCS NJXS 2019 12:00:00 AM EST eCW1 ([facility]) PROF SVCS ALLG IMMNTX X W/PRV ALLGIC XTRCS NJXS 2019 12:00:00 AM EST eCW1 ([facility]) PROF SVCS ALLG IMMNTX X W/PRV ALLGIC XTRCS NJXS 2019 12:00:00 AM EST eCW1 ([facility]) PROF SVCS ALLG IMMNTX X W/PRV ALLGIC XTRCS NJXS 2019 12:00:00 AM EST eCW1 ([facility]) PROF SVCS ALLG IMMNTX X W/PRV ALLGIC XTRCS NJXS 2019 12:00:00 AM EDT eCW1 ([facility]) PROF SVCS ALLG IMMNTX X W/PRV ALLGIC XTRCS NJXS 2019 12:00:00 AM EDT eCW1 ([facility]) Results ID Date Data Source [id number] 01/26/2021 03:18:00 PM EDT [facility] ([facility]) Name Value Range Interpretation Code Description Data Melvina rce(s) Supporting Document(s) Bacteria identified in Throat by Culture Laboratory test result MEDENT ([facility], [facility]) FULL REPORT IN LAB NOTES (eCW and [facility] ). NORMAL DAVINA PRESENT ID Date Data Source [id number] 01/25/2021 06:10:00 PM EDT [facility] Name Value Range Interpretation Code Description Data Melvina rce(s) Supporting Document(s) SARS coronavirus 2 RdRp gene Covid_negative [place] This lab was ordered by [facility] and reported by [employer]. ID Date Data Source [id number] 10/29/2020 01:54:00 AM EDT [facility] FASTING:YESFASTING: YESReceived: 021 at 13:39:00 QPT: [facility], [address], [address] [place] [address], [address]Julio MD Received: 10/26/2020 at 13:39:00 QPT : [facility], [address], [address] [place] [address], [address]Julio MD Received: 10/26/2020 at 13:39:00 QPT : [facility], [address], [address] [place] [address], [address]Julio MD Received: 10/26/2020 at 13:39:00 QPT : [facility], [address], [address] [place] [address], [address]Julio MD Received: 10/26/2020 at 13:39:00 QPT : [facility], [address], [address] [place] [address], [address]Julio MD Received: 10/26/2020 at 13:39:00 QPT : [facility], [address], [address] [place] [address], [address]Julio MD Received: 10/26/2020 at 13:39:00 QPT : [facility], [address], [address] [place] [address], [address]Julio MD Received: 10/26/2020 at 13:39:00 QPT : [facility], [address], [address] [place], [address]Julio MD Received: 10/26/2020 at 13:39:00 QPT : [facility], [address], [address] [place], [address], Julio Napoles MD Received: 10/26/2020 at 13:39:00 QPT : [facility], [address], [address] [place], [address], Julio Napoles MD Received: 10/26/2020 at 13:39:00 QPT : [facility], [address], [address] [place] [address], [address], Julio Napoles MD Received: 10/26/2020 at 13:39:00 QPT : [facility], [address], [address] [place] [address], [address], Julio Napoles MD Name Value Range Interpretation Code Description Data Melvina rce(s) Supporting Document(s) ID Date Data Source [id number] 10/29/2020 01:35:00 AM EDT [facility] FASTING:YESFASTING: YESReceived: 021 at 13:39:00 QPT: [facility], [address], [address] [place], [address]Julio MD Received: 10/26/2020 at 13:39:00 QPT : [facility], [address], [address] [place], [address]Julio MD Received: 10/26/2020 at 13:39:00 QPT : [facility], [address], [address] [place] [address], [address]Julio MD Received: 10/26/2020 at 13:39:00 QPT : [facility], [address], [address] [place], [address]Julio MD Received: 10/26/2020 at 13:39:00 QPT : [facility], [address], [address] [place], [address], Julio Napoles MD Received: 10/26/2020 at 13:39:00 QPT : [facility], [address], [address] [place], [address], Julio Napoles MD Received: 10/26/2020 at 13:39:00 QPT : [facility], [address], [address] [place] [address], [address], Julio Napoles MD Received: 10/26/2020 at 13:39:00 QPT : [facility], [address], [address] [place] [address], [address], Julio Napoles MD Received: 10/26/2020 at 13:39:00 QPT : [facility], [address], [address] [place] [address], [address], Julio Napoles MD Received: 10/26/2020 at 13:39:00 QPT : [facility], [address], [address] [place] [address], [address], Julio Napoles MD Received: 10/26/2020 at 13:39:00 QPT : [facility], [address], [address] [place] [address], [address], Julio Napoles MD Received: 10/26/2020 at 13:39:00 QPT : [facility], [address], [address] [place] [address], [address]Julio MD Name Value Range Interpretation Code Description Data Melvina rce(s) Supporting Document(s) Cholesterol [Mass/volume] in Serum or Plasma 226 mg/dL <170 Ab ove high normal [facility] ID Date Data Source [id number] 10/29/2020 01:35:00 AM EDT [facility] FASTING:YESFASTING: YESReceived: 021 at 13:39:00 QPT: [facility], [address], [address] [place], [address], Julio Napoles MD Received: 10/26/2020 at 13:39:00 QPT : [facility], [address], [address] [place], [address], Julio Napoles MD Received: 10/26/2020 at 13:39:00 QPT : [facility], [address], [address] [place], [address], Julio Napoles MD Received: 10/26/2020 at 13:39:00 QPT : [facility], [address], [address] [place] [address], [address], Julio Napoles MD Received: 10/26/2020 at 13:39:00 QPT : [facility], [address], [address] [place] [address], [address], Julio Napoles MD Received: 10/26/2020 at 13:39:00 QPT : [facility], [address], [address] [place] [address], [address], Julio Napoles MD Received: 10/26/2020 at 13:39:00 QPT : [facility], [address], [address] [place], [address], Julio Napoles MD Received: 10/26/2020 at 13:39:00 QPT : [facility], [address], [address] [place] [address], [address], Julio Napoles MD Received: 10/26/2020 at 13:39:00 QPT : [facility], [address], [address] [place] [address], [address], Julio Napoles MD Received: 10/26/2020 at 13:39:00 QPT : [facility], [address], [address] [place] [address], [address], Julio Napoles MD Received: 10/26/2020 at 13:39:00 QPT : [facility], [address], [address] [place], [address], Julio Napoles MD Received: 10/26/2020 at 13:39:00 QPT : [facility], [address], [address] [place], [address], Julio Napoles MD Name Value Range Interpretation Code Description Data Melvina rce(s) Supporting Document(s) Cholesterol in HDL [Mass/volume] in Serum or Plasma 44 mg/dL >45 Below low normal [facility] ID Date Data Source [id number] 10/29/2020 01:54:00 AM EDT [facility] FASTING:YESFASTING: YESReceived: 021 at 13:39:00 QPT: [facility], [address], [address] [place] [address], [address], Julio Napoles MD Received: 10/26/2020 at 13:39:00 QPT : [facility], [address], [address] [place] [address], [address], Julio Napoles MD Received: 10/26/2020 at 13:39:00 QPT : [facility], [address], [address] [place], [address], Julio Napoles MD Received: 10/26/2020 at 13:39:00 QPT : [facility], [address], [address] [place], [address]Julio MD Received: 10/26/2020 at 13:39:00 QPT : [facility], [address], [address] [place] [address], [address]Julio MD Received: 10/26/2020 at 13:39:00 QPT : [facility], [address], [address] [place] [address], [address]Julio MD Received: 10/26/2020 at 13:39:00 QPT : [facility], [address], [address] [place], [address], Julio Napoles MD Received: 10/26/2020 at 13:39:00 QPT : [facility], [address], [address] [place], [address], Julio Napoles MD Received: 10/26/2020 at 13:39:00 QPT : [facility], [address], [address] [place] [address], [address], Julio Napoles MD Received: 10/26/2020 at 13:39:00 QPT : [facility], [address], [address] [place], [address], Julio Napoles MD Received: 10/26/2020 at 13:39:00 QPT : [facility], [address], [address] [place], [address]Julio MD Received: 10/26/2020 at 13:39:00 QPT : [facility], [address], [address] [place] [address], [address], Julio Napoles MD Name Value Range Interpretation Code Description Data Melvina rce(s) Supporting Document(s) Cholesterol [Mass/volume] in Serum or Plasma 226 mg/dL <170 Ab ove high normal [facility] ID Date Data Source [id number] 10/29/2020 01:35:00 AM EDT [facility] FASTING:YESFASTING: YESReceived: 021 at 13:39:00 QPT: [facility], [address], [address] [place], [address]Julio MD Received: 10/26/2020 at 13:39:00 QPT : [facility], [address], [address] [place], [address]Julio MD Received: 10/26/2020 at 13:39:00 QPT : [facility], [address], [address] [place], [address], Julio Napoles MD Received: 10/26/2020 at 13:39:00 QPT : [facility], [address], [address] [place] [address], [address], Julio Napoles MD Received: 10/26/2020 at 13:39:00 QPT : [facility], [address], [address] [place] [address], [address], Julio Napoles MD Received: 10/26/2020 at 13:39:00 QPT : [facility], [address], [address] [place] [address], [address], Julio Napoles MD Received: 10/26/2020 at 13:39:00 QPT : [facility], [address], [address] [place] [address], [address], Julio Napoles MD Received: 10/26/2020 at 13:39:00 QPT : [facility], [address], [address] [place] [address], [address], Julio Napoles MD Received: 10/26/2020 at 13:39:00 QPT : [facility], [address], [address] [place] [address], [address], Julio Napoles MD Received: 10/26/2020 at 13:39:00 QPT : [facility], [address], [address] [place] [address], [address], Julio Napoles MD Received: 10/26/2020 at 13:39:00 QPT : [facility], [address], [address] [place] [address], [address], Julio Napoles MD Received: 10/26/2020 at 13:39:00 QPT : [facility], [address], [address] [place] [address], [address], Julio Napoles MD Name Value Range Interpretation Code Description Data Melvina rce(s) Supporting Document(s) Triglyceride [Mass/volume] in Serum or Plasma 82 mg/dL <9 0 Normal (applies to non-numeric results) [facility] ID Date Data Source [id number] 10/29/2020 01:35:00 AM EDT [facility] FASTING:YESFASTING: YESReceived: 021 at 13:39:00 QPT: [facility], [address], [address] [place] [address], [address], Julio Napoles MD Received: 10/26/2020 at 13:39:00 QPT : [facility], [address], [address] [place] [address], [address], Julio Napoles MD Received: 10/26/2020 at 13:39:00 QPT : [facility], [address], [address] [place] [address], [address], Julio Napoles MD Received: 10/26/2020 at 13:39:00 QPT : [facility], [address], [address] [place] [address], [address]Julio MD Received: 10/26/2020 at 13:39:00 QPT : [facility], [address], [address] [place] [address], [address]Julio MD Received: 10/26/2020 at 13:39:00 QPT : [facility], [address], [address] [place] [address], [address]Julio MD Received: 10/26/2020 at 13:39:00 QPT : [facility], [address], [address] [place] [address], [address]Julio MD Received: 10/26/2020 at 13:39:00 QPT : [facility], [address], [address] [place] [address], [address]Julio MD Received: 10/26/2020 at 13:39:00 QPT : [facility], [address], [address] [place], [address], Julio Napoles MD Received: 10/26/2020 at 13:39:00 QPT : [facility], [address], [address] [place], [address], Julio Napoles MD Received: 10/26/2020 at 13:39:00 QPT : [facility], [address], [address] [place], [address], Julio Napoles MD Received: 10/26/2020 at 13:39:00 QPT : [facility], [address], [address] [place], [address], Julio Napoles MD Name Value Range Interpretation Code Description Data Melvina rce(s) Supporting Document(s) Cholesterol in LDL [Mass/volume] in Serum or Plasma by calculation 163 mg/dL (calc) <110 Above high normal [facility] LDL-C is now calculated using the Syed -Nishacalculation, which is a validated novel method providingbetter accuracy than the Friedewald equation in theestimation of LDL-C.Syed SS et al. EVANGELINA. 2013;310(19): 2551-1508(http://education.[employer]/faq/NYI545) ID Date Data Source [id number] 10/29/2020 01:35:00 AM EDT [facility] FASTING:YESFASTING: YESReceived: 021 at 13:39:00 QPT: [facility], [address], [address] [place], [address]Julio MD Received: 10/26/2020 at 13:39:00 QPT : [facility], [address], [address] [place], [address]Julio MD Received: 10/26/2020 at 13:39:00 QPT : [facility], [address], [address] [place], [address], Julio Napoles MD Received: 10/26/2020 at 13:39:00 QPT : [facility], [address], [address] [place], [address], Julio Napoles MD Received: 10/26/2020 at 13:39:00 QPT : [facility], [address], [address] [place], [address], Julio Napoles MD Received: 10/26/2020 at 13:39:00 QPT : [facility], [address], [address] [place] [address], [address], Julio Napoles MD Received: 10/26/2020 at 13:39:00 QPT : [facility], [address], [address] [place] [address], [address], Julio Napoles MD Received: 10/26/2020 at 13:39:00 QPT : [facility], [address], [address] [place] [address], [address], Julio Napoles MD Received: 10/26/2020 at 13:39:00 QPT : [facility], [address], [address] [place] [address], [address], Julio Napoles MD Received: 10/26/2020 at 13:39:00 QPT : [facility], [address], [address] [place] [address], [address], Julio Napoles MD Received: 10/26/2020 at 13:39:00 QPT : [facility], [address], [address] [place] [address], [address], Julio Napoles MD Received: 10/26/2020 at 13:39:00 QPT : [facility], [address], [address] [place] [address], [address], Julio Napoles MD Name Value Range Interpretation Code Description Data Melvina rce(s) Supporting Document(s) Cholesterol.total/Cholesterol in HDL [Mass Ratio] in Serum o r Plasma 5.1 (calc) <5.0 Above high normal [facility] ID Date Data Source [id number] 10/29/2020 01:35:00 AM EDT [facility] FASTING:YESFASTING: YESReceived: 021 at 13:39:00 QPT: [facility], [address], [address] [place] [address], [address], Julio Napoles MD Received: 10/26/2020 at 13:39:00 QPT : [facility], [address], [address] [place] [address], [address], Julio Napoles MD Received: 10/26/2020 at 13:39:00 QPT : [facility], [address], [address] [place] [address], [address], Julio Napoles MD Received: 10/26/2020 at 13:39:00 QPT : [facility], [address], [address] [place] [address], [address], Julio Napoles MD Received: 10/26/2020 at 13:39:00 QPT : [facility], [address], [address] [place] [address], [address], Julio Napoles MD Received: 10/26/2020 at 13:39:00 QPT : [facility], [address], [address] [place] [address], [address]Julio MD Received: 10/26/2020 at 13:39:00 QPT : [facility], [address], [address] [place] [address], [address]Julio MD Received: 10/26/2020 at 13:39:00 QPT : [facility], [address], [address] [place] [address], [address]Julio MD Received: 10/26/2020 at 13:39:00 QPT : [facility], [address], [address] [place], [address]Julio MD Received: 10/26/2020 at 13:39:00 QPT : [facility], [address], [address] [place], [address]Julio MD Received: 10/26/2020 at 13:39:00 QPT : [facility], [address], [address] [place], [address]Julio MD Received: 10/26/2020 at 13:39:00 QPT : [facility], [address], [address] [place], [address], Julio Napoles MD Name Value Range Interpretation Code Description Data Melvina rce(s) Supporting Document(s) Cholesterol non HDL [Mass/volume] in Serum or Plasma 182 mg/dL ( calc) <120 Above high normal [facility] For patients with diabetes plus 1 major ASCVD riskfactor, treating to a non-HDL-C goal of <100 mg/dL(LDL-C of <70 mg/dL) is considered a therapeuticoption. ID Date Data Source [id number] 10/29/2020 01:54:00 AM EDT [facility] FASTING:YESFASTING: YESReceived: 021 at 13:39:00 QPT: [facility], [address], [address] [place], [address]Julio MD Received: 10/26/2020 at 13:39:00 QPT : [facility], [address], [address] [place], [address]Julio MD Received: 10/26/2020 at 13:39:00 QPT : [facility], [address], [address] [place], [address]Julio MD Received: 10/26/2020 at 13:39:00 QPT : [facility], [address], [address] [place], [address], Julio Napoles MD Received: 10/26/2020 at 13:39:00 QPT : [facility], [address], [address] [place], [address], Julio Napoles MD Received: 10/26/2020 at 13:39:00 QPT : [facility], [address], [address] [place], [address], Julio Napoles MD Received: 10/26/2020 at 13:39:00 QPT : [facility], [address], [address] [place] [address], [address], Julio Napoles MD Received: 10/26/2020 at 13:39:00 QPT : [facility], [address], [address] [place] [address], [address], Julio Napoles MD Received: 10/26/2020 at 13:39:00 QPT : [facility], [address], [address] [place] [address], [address], Julio Napoles MD Received: 10/26/2020 at 13:39:00 QPT : [facility], [address], [address] [place] [address], [address], Julio Napoles MD Received: 10/26/2020 at 13:39:00 QPT : [facility], [address], [address] [place] [address], [address], Julio Napoles MD Received: 10/26/2020 at 13:39:00 QPT : [facility], [address], [address] [place] [address], [address], Julio Napoles MD Name Value Range Interpretation [...] to non-numeric results) [facility] eGFR NON-AFR. [place] 123 mL/min/1.73m2 > OR = 60 Normal [...] [facility] ID Date Data Source [id number] 10/29/2020 01:54:00 AM EDT [facility] FASTING:YESFASTING: YESReceived: 021 at 13:39:00 QPT: [facility], [address], [address] [place] [address], [address], Julio Napoles MD Received: 10/26/2020 at 13:39:00 QPT : [facility], [address], [address] [place] [address], [address]Julio MD Received: 10/26/2020 at 13:39:00 QPT : [facility], [address], [address] [place] [address], [address]Julio MD Received: 10/26/2020 at 13:39:00 QPT : [facility], [address], [address] [place] [address], [address], Julio Napoles MD Received: 10/26/2020 at 13:39:00 QPT : [facility], [address], [address] [place] [address], [address]Julio MD Received: 10/26/2020 at 13:39:00 QPT : [facility], [address], [address] [place] [address], [address]Julio MD Received: 10/26/2020 at 13:39:00 QPT : [facility], [address], [address] [place] [address], [address]Julio MD Received: 10/26/2020 at 13:39:00 QPT : [facility], [address], [address] [place], [address], Julio Napoles MD Received: 10/26/2020 at 13:39:00 QPT : [facility], [address], [address] [place], [address], Julio Napoles MD Received: 10/26/2020 at 13:39:00 QPT : [facility], [address], [address] [place], [address], Julio Napoles MD Received: 10/26/2020 at 13:39:00 QPT : [facility], [address], [address] [place], [address], Julio Napoles MD Received: 10/26/2020 at 13:39:00 QPT : [facility], [address], [address] [place], [address], Julio Napoles MD Name Value Range Interpretation [...] [facility] ID Date Data Source [id number] 10/29/2020 01:54:00 AM EDT [facility] FASTING:YESFASTING: YESReceived: 021 at 13:39:00 QPT: [facility], [address], [address] [place] [address], [phone] MD Received: 10/26/2020 at 13:39:00 QPT : [facility], [address], [address] [place] [address], [phone] MD Received: 10/26/2020 at 13:39:00 QPT : [facility], [address], [address] [place] [address], [phone] MD Received: 10/26/2020 at 13:39:00 QPT : [facility], [address], [address] [place] [address], [phone] MD Received: 10/26/2020 at 13:39:00 QPT : [facility], [address], [address] [place] [address], [phone] MD Received: 10/26/2020 at 13:39:00 QPT : [facility], [address], [address] [place], [address], Julio Napoles MD Received: 10/26/2020 at 13:39:00 QPT : [facility], [address], [address] [place], [address], Julio Napoles MD Received: 10/26/2020 at 13:39:00 QPT : [facility], [address], [address] [place], [address], Julio Napoles MD Received: 10/26/2020 at 13:39:00 QPT : [facility], [address], [address] [place] [address], [phone], Julio Napoles MD Received: 10/26/2020 at 13:39:00 QPT : [facility], [address], [address] [place], [address], Julio Napoles MD Received: 10/26/2020 at 13:39:00 QPT : [facility], [address], [address] [place], [address], Juilo Napoles MD Received: 10/26/2020 at 13:39:00 QPT : [facility], [address], [address] [place], [address], Julio Napoles MD Name Value Range Interpretation [...] VIT D, (D2,D3), LC/MS/MS is recommended: ordercode 00492 (patients >2yrs).See Note 1Note 1For additional information, please refer [email or web address].Trusted Opinion/faq/MMZ740(This link is being provided for informational/educational purposes only.) ID Date Data Source [id number] 10/29/2020 01:54:00 AM EDT [facility] FASTING:YESFASTING: YESReceived: 021 at 13:39:00 QPT: [facility], [address], [address] [place] [address], [phone], Julio Napoles MD Received: 10/26/2020 at 13:39:00 QPT : [facility], [address], [address] [place] [address], [phone], Julio Napoles MD Received: 10/26/2020 at 13:39:00 QPT : [facility], [address], [address] [place] [address], [phone], Julio Napoles MD Received: 10/26/2020 at 13:39:00 QPT : [facility], [address], [address] [place] [address], [phone], Julio Napoles MD Received: 10/26/2020 at 13:39:00 QPT : [facility], [address], [address] [place] [address], [phone], Julio Napoles MD Received: 10/26/2020 at 13:39:00 QPT : [facility], [address], [address] [place] [address], [phone] MD Received: 10/26/2020 at 13:39:00 QPT : [facility], [address], [address] [place] [address], [phone] MD Received: 10/26/2020 at 13:39:00 QPT : [facility], [address], [address] [place] [address], [phone] MD Received: 10/26/2020 at 13:39:00 QPT : [facility], [address], [address] [place], [address]Julio MD Received: 10/26/2020 at 13:39:00 QPT : [facility], [address], [address] [place], [address]Julio MD Received: 10/26/2020 at 13:39:00 QPT : [facility], [address], [address] [place], [phone] MD Received: 10/26/2020 at 13:39:00 QPT : [facility], [address], [address] [place], [address], Julio Napoles MD Name Value Range Interpretation Code Description Data Melvina rce(s) Supporting Document(s) Hemoglobin A1c/Hemoglobin.total in Blood 5.7 % of total Hgb <5.7 Above high normal [facility] For someone without known diabetes, a he [id number] value between 5.7% and 6.4% is consistent withprediabetes and should be confirmed with afollow-up test.For someone with known diabetes, a value <7%indicates that their diabetes is well controlled. [id number] should be individualized based on duration ofdiabetes, age, comorbid conditions, and otherconsiderations.This assay result is consistent with an increased riskof diabetes.Currently, no consensus exists regarding use ofhemoglobin A1c for diagnosis of diabetes for children. ID Date Data Source [id number] 10/29/2020 01:54:00 AM EDT [facility] FASTING:YESFASTING: YESReceived: 021 at 13:39:00 QPT: [facility], [address], [address] [place], [phone] MD Received: 10/26/2020 at 13:39:00 QPT : [facility], [address], [address] [place], [address]Julio MD Received: 10/26/2020 at 13:39:00 QPT : [facility], [address], [address] [place], [address], Julio Napoles MD Received: 10/26/2020 at 13:39:00 QPT : [facility], [address], [address] [place], [address], Julio Napoles MD Received: 10/26/2020 at 13:39:00 QPT : [facility], [address], [address] [place] [address], [phone], Julio Napoles MD Received: 10/26/2020 at 13:39:00 QPT : [facility], [address], [address] [place] [address], [phone], Julio Napoles MD Received: 10/26/2020 at 13:39:00 QPT : [facility], [address], [address] [place] [address], [phone], Julio Napoles MD Received: 10/26/2020 at 13:39:00 QPT : [facility], [address], [address] [place] [address], [phone], Julio Napoles MD Received: 10/26/2020 at 13:39:00 QPT : [facility], [address], [address] [place] [address], [phone], Julio Napoles MD Received: 10/26/2020 at 13:39:00 QPT : [facility], [address], [address] [place] [address], [phone], Julio Napoles MD Received: 10/26/2020 at 13:39:00 QPT : [facility], [address], [address] [place] [address], [phone], Julio Napoles MD Received: 10/26/2020 at 13:39:00 QPT : [facility], [address], [address] [place] [address], [phone] MD Name Value Range Interpretation Code Description Data Melvina rce(s) Supporting Document(s) Bacteria identified in Urine by Culture [facility] CULTURE, URINE, ROUTINE Micro Number: [id number] Test Status: Final Specimen Source: Urine Specimen Quality: Adequate Result: No Growth Your request to have a duplicate copy faxed has been acknowledged. Queued to: [id number] ID Date Data Source [id number] 08/03/2020 05:26:00 PM EDT [facility] Name Value Range Interpretation Code Description Data Melvina rce(s) Supporting Document(s) SARS coronavirus 2 Ag Covid_negative LOCATED WITHIN [facility] This lab was ordered by TARUN strange nd reported by [employer]. ID Date Data Source [id number] 07/27/2020 05:57:00 PM EDT [facility] Name Value Range Interpretation Code Description Data Melvina rce(s) Supporting Document(s) SARS coronavirus 2 Ag Covid_negative LOCATED [facility] This lab was ordered by TARUN strange nd reported by [employer]. ID Date Data Source [id number] 06/29/2020 06:55:00 PM EDT [facility] Name Value Range Interpretation Code Description Data Melvina rce(s) Supporting Document(s) SARS coronavirus 2 Ag Covid_negative LOCATED [facility] This lab was ordered by TARUN strange nd reported by [employer]. ID Date Data Source [id number] 06/15/2020 12:00:00 AM EDT [facility] Name Value Range Interpretation Code Description Data Melvina rce(s) Supporting Document(s) SARS coronavirus 2 Ag Covid_negative LOCATED [facility]IN [facility] This lab was ordered by TARUN strange nd reported by [employer]. ID Date Data Source [id number] 04/12/2020 05:07:00 PM EST [facility] Name Value Range Interpretation Code Description Data Melvina rce(s) Supporting Document(s) SARS coronavirus 2 RdRp gene [Presence] in Respiratory specimen by PRIS[facility]LLA with probe detection Not detected [facility] This lab was ordered by [facility] and reported by [facility]. ID Date Data Source [id number] 01/31/2020 09:30:00 AM EST [facility] ([facility]) Name Value Range Interpretation Code Description Data Melvina rce(s) Supporting Document(s) SARS-CoV-2 (COVID-19) RNA [Presence] in Respiratory specimen by PRISCILLA with probe detection not detected not detected Sars Cov 2 RNA KOBE ([facility]) ID Date Data Source [id number] 01/31/2020 09:30:00 AM EST [facility] ([facility]) Name Value Range Interpretation Code Description Data Melvina rce(s) Supporting Document(s) SARS coronavirus 2 RNA [Presence] in Res piratory specimen by PRISCILLA with probe detection not detected not detected Sars Cov 2 RNA KOBE ([facility]) ID Date Data Source [id number] 01/17/2020 09:30:00 AM EDT [facility]) Name Value Range Interpretation Code Description Data Melvina rce(s) Supporting Document(s) SARS-CoV-2 (COVID-19) RNA [Presence] in Respiratory specimen by PRISCILLA with probe detection not detected not detected Sars Cov 2 RNA DRAPER ([facility]) ID Date Data Source [id number] 01/17/2020 09:30:00 AM EDT [facility]) Name Value Range Interpretation Code Description Data Melvina rce(s) Supporting Document(s) SARS coronavirus 2 RNA [Presence] in Res piratory specimen by PRISCILLA with probe detection not detected not detected Sars Cov 2 RNA KOBE ([facility]) ID Date Data Source [id number] 01/17/2020 09:30:00 [facility] Name Value Range Interpretation Code Description Data Melvina rce(s) Supporting Document(s) SARS coronavirus 2 RNA [Presence] in Res piratory specimen by PRISCILLA with probe detection not detected not detected Sars Cov 2 RNA [facility]) ID Date Data Source [id number] 01/17/2020 09:30:00 AM EDT [facility] Name Value Range Interpretation Code Description Data Melvina rce(s) Supporting Document(s) SARS-COV-2 RNA RESP QL [facility]BE [facility] This lab was ordered by [facility] [employer] [facility] [employer] and reported by [employer]. ID Date Data Source Urinalysis, no micro 01/15/2020 04:30:20 AM EDT eCW1 ([facility]) Name Value Range Interpretation Code Description Data Melvina rce(s) Supporting Document(s) 1.030 Spec gravity eCW1 ([facility]) 5 pH eCW1 ([facility]) trace Leukocyte eCW1 ([facility]) neg Nitrate eCW1 ([facility]) beg Glucose eCW1 ([facility]) neg Protein eCW1 ([facility]) neg Ketones eCW1 ([facility]) neg Blood eCW1 ([facility]) neg Bilirubin eCW1 ([facility]) neg Urobili eCW1 ([facility]) yes Internal QC Acceptable (Y/N) e CW1 ([facility]) ID Date Data Source Test, Urine 01/15/2020 04:30:02 AM EDT eCW1 ([facility]) Name Value Range Interpretation Code Description Data Melvina rce(s) Supporting Document(s) Choriogonadotropin.beta subunit ( test) [Presence] in Urin e neg Test, Urine eCW1 ([facility]) yes Internal QC Acceptable (Y/N) e CW1 ([facility]) ID Date Data Source [id number] 01/03/2020 09:30:00 AM EDT [facility] In-House Lab TestsDate/Time Collect ed: January 03, 2020 9:30 AMDate/Time Received: January 03, 2020 9:30 AMComments: COVID-19 testing done in office taken from the right nostril without difficulty. Patient tolerated it well. Keya Lane MA, January 03, 2020 9:54 AMAssessment & Plan Orders:Specimen Handling [[id number]] Name Value Range Interpretation Code Description Data Melvina rce(s) Supporting Document(s) ID Date Data Source [id number] 01/03/2020 12:00:00 AM EDT [facility] Name Value Range Interpretation Code Description Data Melvina rce(s) Supporting Document(s) SARS-COV-2 RNA RESP QL PRISCILLA+PROBE [facility] This lab was ordered by [facility] and reported by [facility]. ID Date Data Source [id number] 12/17/2019 02:15:00 PM EDT [facility] Name Value Range Interpretation Code Description Data Melvina rce(s) Supporting Document(s) SARS-COV-2 RNA RESP QL PRISCILLA+PROBE [facility] This lab was ordered by [facility] and reported by [facility]. Procedure Social History Code Duration Value Status Description Data Source(s ) Smoking 01/09/2021 12:00:00 AM EDT Never Smoker completed Never S moker eCW1 ([facility]) Smoking 01/09/2021 12:00:00 AM EDT Never Smoker completed Never S moker eCW1 ([facility]) Smoking 11/17/2020 12:00:00 AM EDT Never Smoker completed Never S moker eCW1 ([facility]) Smoking 11/17/2020 12:00:00 AM EDT Never Smoker completed Never S moker eCW1 ([facility]) Smoking 11/17/2020 12:00:00 AM EDT Never Smoker completed Never S moker eCW1 ([facility]) Smoking 11/03/2020 12:00:00 AM EDT Never Smoker completed Never S moker eCW1 ([facility]) Smoking 11/03/2020 12:00:00 AM EDT Never Smoker completed Never S moker eCW1 ([facility]) Smoking 10/25/2020 12:00:00 AM EDT Never Smoker completed Never S moker eCW1 ([facility]) Smoking 10/20/2020 12:00:00 AM EDT Never Smoker completed Never S moker eCW1 ([facility]) Smoking 10/06/2020 12:00:00 AM EDT Never Smoker completed Never S moker eCW1 ([facility]) Smoking 09/21/2020 12:00:00 AM EDT Never Smoker completed Never S moker eCW1 ([facility]) Smoking 08/18/2020 12:00:00 AM EDT Never Smoker completed Never S moker eCW1 ([facility]) Smoking 08/18/2020 12:00:00 AM EDT Never Smoker completed Never S moker eCW1 ([facility]) Smoking 07/26/2020 12:00:00 AM EDT Never Smoker completed Never S moker eCW1 ([facility]) Smoking 07/26/2020 12:00:00 AM EDT Never Smoker completed Never S moker eCW1 ([facility]) Smoking 07/26/2020 12:00:00 AM EDT Never Smoker completed Never S moker eCW1 ([facility]) Smoking 07/21/2020 12:00:00 AM EDT Never Smoker completed Never S moker eCW1 ([facility]) Smoking 06/09/2020 12:00:00 AM EDT Never Smoker completed Never S moker eCW1 ([facility]) Smoking 06/09/2020 12:00:00 AM EDT Never Smoker completed Never S moker eCW1 ([facility]) Smoking 06/09/2020 12:00:00 AM EDT Never Smoker completed Never S moker eCW1 ([facility]) Smoking 03/28/2020 12:00:00 AM EST Never Smoker completed Never S moker eCW1 ([facility]) Smoking 03/28/2020 12:00:00 AM EST Never Smoker completed Never S moker eCW1 ([facility]) Smoking 03/28/2020 12:00:00 AM EST Never Smoker completed Never S moker eCW1 ([facility]) Smoking 03/28/2020 12:00:00 AM EST Never Smoker completed Never S moker eCW1 ([facility]) Smoking 03/28/2020 12:00:00 AM EST Never Smoker completed Never S moker eCW1 ([facility]) Smoking 01/14/2020 12:00:00 AM EDT Never Smoker completed Never S moker eCW1 ([facility]) Smoking 01/14/2020 12:00:00 AM EDT Never Smoker completed Never S moker eCW1 ([facility]) Smoking 01/14/2020 12:00:00 AM EDT Never Smoker completed Never S moker eCW1 ([facility]) Smoking 01/14/2020 12:00:00 AM EDT Never Smoker completed Never S moker eCW1 ([facility]) Smoking 01/14/2020 12:00:00 AM EDT Never Smoker completed Never S moker eCW1 ([facility]) Smoking 01/14/2020 12:00:00 AM EDT Never Smoker completed Never S moker eCW1 ([facility]) Vital Signs ID Date Data Source UNK Name Value Range Interpretation Code Description Data Source(s) Diastolic blood pressure 81 mm[Hg] 81 mm[Hg] [facility] Systolic blood pressure 120 mm[Hg] 120 mm[Hg] M EDENT ([facility], [facility]) Body temperature 98.7 [degF] 98.7 [degF] MEDENT ([facility], [facility]) Body weight 216.00 [lb_av] 216.00 [lb_av] MEDEN T ([facility], [facility]) Body height 50 [in_i] 50 [in_i] [facility] ([facility]) 4'2" Heart rate 80 /min 80 /min [facility] ([facility], [facility]) Body mass index (BMI) [Ratio] 60.7 kg/m2 60.7 k g/m2 [facility] ([facility]) Respiratory rate 16 /min 16 /min MEDENT ( [facility]) Oxygen saturation in Arterial blood by Pulse oximetry 100 % 100 % MEDENT ([facility]) Body weight 215 [lb_av] 215 [lb_av] eCW1 ([facility]) Body height [in_i] eCW1 ([facility]) Body mass index (BMI) [Ratio] 41.98 kg/m2 41.98 kg/m2 eCW1 ([facility]) Heart rate 79 /min 79 /min eCW1 ([facility]) Respiratory rate 18 /min 18 /min eCW1 ([facility]) Body temperature 97.3 [degF] 97.3 [degF] eCW1 ( [facility]) Systolic blood pressure 112 mm[Hg] 112 mm[Hg] e CW1 ([facility]) Diastolic blood pressure 70 mm[Hg] 70 mm[Hg] eCW1 ([facility]) Body weight 216 [lb_av] 216 [lb_av] eCW1 ([facility]) Body temperature 97.2 [degF] 97.2 [degF] eCW1 ( [facility]) Systolic blood pressure 110 mm[Hg] 110 mm[Hg] e CW1 ([facility]) Diastolic blood pressure 70 mm[Hg] 70 mm[Hg] eCW1 ([facility]) Body height [in_i] eCW1 ([facility]) Body mass index (BMI) [Ratio] 42.18 kg/m2 42.18 kg/m2 eCW1 ([facility]) Heart rate 80 /min 80 /min eCW1 ([facility]) Respiratory rate 18 /min 18 /min eCW1 ([facility]) Body weight 215 [lb_av] 215 [lb_av] eCW1 ([facility]) Body height [in_i] eCW1 ([facility]) Body mass index (BMI) [Ratio] 41.98 kg/m2 41.98 kg/m2 eCW1 ([facility]) Heart rate 80 /min 80 /min eCW1 ([facility]) Respiratory rate 18 /min 18 /min eCW1 ([facility]) Body temperature 97 [degF] 97 [degF] eCW1 ([facility]) Systolic blood pressure 110 mm[Hg] 110 mm[Hg] e CW1 ([facility]) Diastolic blood pressure 70 mm[Hg] 70 mm[Hg] eCW1 ([facility]) Body weight 203 [lb_av] 203 [lb_av] eCW1 ([facility]) Body height [in_i] eCW1 ([facility]) Body mass index (BMI) [Ratio] 39.64 kg/m2 39.64 kg/m2 eCW1 ([facility]) Heart rate 88 /min 88 /min eCW1 ([facility]) Respiratory rate 16 /min 16 /min eCW1 ([facility]) Body temperature 97.3 [degF] 97.3 [degF] eCW1 ( [facility]) Body weight 203 [lb_av] 203 [lb_av] eCW1 ([facility]) Body height [in_i] eCW1 ([facility]) Body mass index (BMI) [Ratio] 39.64 kg/m2 39.64 kg/m2 eCW1 ([facility]) Heart rate 88 /min 88 /min eCW1 ([facility]) Respiratory rate 20 /min 20 /min eCW1 ([facility]) Body temperature 98.7 [degF] 98.7 [degF] eCW1 ( [facility]) Systolic blood pressure 110 mm[Hg] 110 mm[Hg] e CW1 ([facility]) Diastolic blood pressure 70 mm[Hg] 70 mm[Hg] eCW1 ([facility]) Respiratory rate 18 /min 18 /min eCW1 ([facility]) Body temperature 97.5 [degF] 97.5 [degF] eCW1 ( [facility]) Systolic blood pressure 110 mm[Hg] 110 mm[Hg] e CW1 ([facility]) Diastolic blood pressure 70 mm[Hg] 70 mm[Hg] eCW1 ([facility]) Body weight 196 [lb_av] 196 [lb_av] eCW1 ([facility]) Body height [in_i] eCW1 ([facility]) Body mass index (BMI) [Ratio] 38.27 kg/m2 38.27 kg/m2 eCW1 ([facility]) Heart rate 80 /min 80 /min eCW1 ([facility]) Patient Treatment Plan of Care Planned Activity Planned Date Details Description Data Source (s) Vitamin D-3 25 MCG (1000 UT) 03/28/2020 12:00:00 AM EST eCW1 ([facility]) Vitamin D-3 25 MCG (1000 UT) 03/28/2020 12:00:00 AM EST eCW1 ([facility]) Vitamin D-3 25 MCG (1000 UT) 03/28/2020 12:00:00 AM EST eCW1 ([facility]) Vitamin D-3 25 MCG (1000 UT) 03/28/2020 12:00:00 AM EST eCW1 ([facility]) Vitamin D-3 25 MCG (1000 UT) 03/28/2020 12:00:00 AM EST eCW1 ([facility]) Vitamin D-3 25 MCG (1000 UT) 03/28/2020 12:00:00 AM EST eCW1 ([facility]) Vitamin D-3 25 MCG (1000 UT) 03/28/2020 12:00:00 AM EST eCW1 ([facility]) Vitamin D-3 25 MCG (1000 UT) 03/28/2020 12:00:00 AM EST eCW1 ([facility]) Vitamin D-3 25 MCG (1000 UT) 03/28/2020 12:00:00 AM EST eCW1 ([facility]) Vitamin D-3 25 MCG (1000 UT) 03/28/2020 12:00:00 AM EST eCW1 ([facility]) Vitamin D-3 25 MCG (1000 UT) 03/28/2020 12:00:00 AM EST eCW1 ([facility]) Vitamin D-3 25 MCG (1000 UT) 03/28/2020 12:00:00 AM EST eCW1 ([facility]) Vitamin D-3 25 MCG (1000 UT) 03/28/2020 12:00:00 AM EST eCW1 ([facility]) Vitamin D-3 25 MCG (1000 UT) 03/28/2020 12:00:00 AM EST eCW1 ([facility]) Vitamin D-3 25 MCG (1000 UT) 03/28/2020 12:00:00 AM EST eCW1 ([facility])
--- NOTE | 2021-01-29 23:44 | REPVR ---
PROCEDURE INFORMATION: Exam: XR Chest Exam date and time: 01/29/2021 11:00 PM Age: 20 years old Clinical indication: Cough and fever and shortness of breath; Additional info: Cough, SOB TECHNIQUE: Imaging protocol: XR of the chest. Views: 2 views. COMPARISON: No relevant prior studies available. FINDINGS: Lungs: There is decreased inflation of the lungs. No focal infiltrates. Pleural spaces: Unremarkable. No pleural effusion. No pneumothorax. Heart/Mediastinum: Unremarkable. No cardiomegaly. Bones/joints: Unremarkable. Soft tissues: There are moderately generous overlying soft tissues. IMPRESSION: Negative poor inspiratory chest. Electronically signed by: Bimal Veliz On 01/29/2021 23:43:12 PM
[2021-01-29] MEDS ORDERED: PSEU120T19 PO (23:49)
[2021-01-29] MEDS ORDERED: TESS100C PO (23:49)
[2021-01-29] MEDS ORDERED: PROAAER10 INH (23:49)
[2021-01-29] MEDS ORDERED: IBUP-1022 PO (23:49)
[2021-01-29] MEDS ORDERED: FLON1SPR NARES (23:49)
== END 2021-01-30 01:09 | disposition home or self-care (01) ==
LOC: M ED 18:44
DX: J06.9 Acute upper respiratory infection, unspecified (principal); B34.8 Other viral infections of unspecified site; J45.909 Unspecified asthma, uncomplicated; Z79.899 Other long term (current) drug therapy

== ENCOUNTER 2021-11-25 11:17 | Emergency (ER) | payer OTHER ==
[~2021-11-25] VITALS: Ht 152.4 cm; Wt 99.1 kg
[~2021-11-25 11:17] MED LIST changes: +FLON1SPR NARES; +IBUP-1022 PO; -MONT10TA10; +MONT10TA97; +PROAAER10 INH; +PSEU120T19 PO; +TESS100C PO
[2021-11-25 11:18] VITALS: BP 125/76
[2021-11-25] MEDS ORDERED: PRED20TA PO (13:18)
[2021-11-25] MEDS ORDERED: AMOX875T2 PO (13:18)
[2021-11-25] MEDS ORDERED: ULTR0.0511 TOP (13:18)
[2021-11-25] MEDS ORDERED: AUGMENTIN 875 MG TAB PO ONE (13:25)
[2021-11-25] MEDS ORDERED: predniSONE 20 MG TAB PO ONE (13:25)
[2021-11-25 14:16] LABS: BASO % 0.4 % (0.0-1.0); EOS # 0.4 10^3/uL (0.0-0.5); HEMATOCRIT 37.7 % (36.0-47.0); HEMOGLOBIN 11.7 g/dl (12.0-15.5); LYMPH # 2.8 10^3/uL (1.5-5.0); LYMPH % 34.5 % (24.0-44.0); MEAN CORPUSCULAR HEMOGLOBIN 24.8 pg (27.0-33.0); MEAN CORPUSCULAR VOLUME 79.9 fl (80.0-96.0); MONO # 0.5 10^3/uL (0.0-0.8); MONO % 6.1 % (2.0-8.0); NEUTROPHILS # 4.3 10^3/uL (1.5-8.5); NEUTROPHILS % 53.8 % (36.0-66.0); PLATELET COUNT, AUTOMATED 217 10^3/uL (150-450); RED BLOOD COUNT 4.72 10^6/uL (4.00-5.40)
[2021-11-25 14:43] LABS: ERYTHROCYTE SEDIMENTATION RATE 28 mm/hr (0-20)
[2021-11-28 19:07] LABS: ANA (HEP2) Positive (.)
== END 2021-11-25 14:28 | disposition home or self-care (01) ==
LOC: M ED 11:17
DX: L30.9 Dermatitis, unspecified (principal); L03.211 Cellulitis of face; E66.9 Obesity, unspecified; F41.9 Anxiety disorder, unspecified; F32.9 Major depressive disorder, single episode, unspecified; Z86.19 Personal history of other infectious and parasitic diseases; Z79.899 Other long term (current) drug therapy; Z91.010 Allergy to peanuts
CPT/HCPCS: 36415; 85025; 85652; 86038; 86140; 86618; 99283; J7512

== ENCOUNTER → 2022-02-06 | Outpatient (CLI) | payer OTHER ==
[~2022-02-06] MED LIST changes: +AMOX875T2 PO; +PRED20TA PO; +ULTR0.0511 TOP
[2022-02-06 19:40] LABS: COMPLEMENT C3 161.9 MG/DL (82.0-160.0); COMPLEMENT C4 31.7 MG/DL (12-36); IMMUNOGLOBULIN A 200.7 MG/DL (40-350); IMMUNOGLOBULIN M 123.1 MG/DL (50-300)
[2022-02-06 21:16] LABS: IMMUNOGLOBULIN E 107.2 IU/ML (0-378)
== END ==
LOC: M PLALAB 15:45
PROVIDERS: ATTEND Nurse Practitioner Adult Health
DX: J32.0 Chronic maxillary sinusitis (principal); J30.1 Allergic rhinitis due to pollen

== ENCOUNTER → 2022-07-10 | Outpatient (REF) | payer OTHER | LOC: M SFHCWAGY 13:18 | PROVIDERS: ATTEND Nurse Practitioner Family | DX: Z12.4 Encounter for screening for malignant neoplasm of cervix (principal) ==

== ENCOUNTER → 2023-03-21 | Outpatient (REF) | payer OTHER | LOC: CANPREREF → M SFHCPLAZ 08:35 | PROVIDERS: ATTEND Family Medicine | DX: Z53.9 Procedure and treatment not carried out, unspecified reason (principal) ==

== ENCOUNTER → 2024-02-04 | Outpatient (REF) | payer OTHER ==
[2024-02-04 16:16] LABS: Trichomonas vaginalis (AMP) NOT DETECTED (NEGATIVE)
[2024-02-04 16:40] LABS: GC DNA AMPLIFICATION NEGATIVE (NEGATIVE)
== END ==
LOC: M SFHCWAGY 13:27
PROVIDERS: ATTEND Nurse Practitioner Family
DX: Z11.3 Encounter for screening for infections with a predominantly sexual mode of transmission (principal)

== ENCOUNTER 2024-03-05 08:39 | Outpatient (RCR) | payer OTHER | END 2024-03-23 | LOC: M PT 08:39 | PROVIDERS: ATTEND Nurse Practitioner Adult Health | DX: M25.562 Pain in left knee (principal); M25.561 Pain in right knee ==

== ENCOUNTER 2024-04-22 14:00 | Outpatient (RCR) | payer OTHER | END 2024-04-23 | LOC: M PT 14:00 | PROVIDERS: ATTEND Nurse Practitioner Adult Health | DX: M25.562 Pain in left knee (principal); M25.561 Pain in right knee ==

== ENCOUNTER → 2024-05-21 | Outpatient (RCR) | payer OTHER | LOC: M PT 05-03 07:34 | PROVIDERS: ATTEND Nurse Practitioner Adult Health | DX: M25.562 Pain in left knee (principal); M25.561 Pain in right knee ==

== ENCOUNTER 2024-06-07 07:35 | Outpatient (RCR) | payer OTHER | END 2024-06-21 | LOC: M PT 07:35 | PROVIDERS: ATTEND Nurse Practitioner Adult Health | DX: M25.562 Pain in left knee (principal); M25.561 Pain in right knee ==